=== PATIENT | female | born 1995 | race Caucasian/White ===

== ENCOUNTER 2019-09-18 12:24 | Observation (INO) | payer SELFPAY ==
[2019-09-18 12:30] VITALS: BP 133/72; PULSE 73; RESP 25; TEMP 36.4; O2SAT 100; BMI 16.2
--- NOTE | 2019-09-18 12:35 | ECG_ITS ---
Measurements Intervals [place] Rate: 67 P: -5 NH: 140 QRS: 89 QRSD: 95 T: 77 QT: 449 QTc: 476 SINUS RHYTHM No previous ECG available for comparison Electronically Signed On 09-18-2019 18:45:21 CDT by Triston Blackwell M.D. [email or web address]
--- NOTE | 2019-09-18 12:37 | US_ITS ---
WS: [id number] Complete ABDOMINAL ULTRASOUND HISTORY: Abdominal Pain COMPARISON: None available. Liver: 12.3 cm in length. Liver is normal size and echogenicity with no mass or intrahepatic dilatati on. Gallbladder: Normally distended with no gallstones, wall thickening or pericholecystic fluid. Gallbladder wall thickness: 0.2 cm. Pancreas: Normal size and echogenicity. CBD: 0.2 cm. Right kidney: 10.9 cm x 5.3 cm x 4.8 cm. No mass, cortical thickening or hydronephrosis. Left kidney: 9.5 cm x 5.3 cm x 4.5 cm. No mass, cortical thickening or hydronephrosis. Spleen: Normal size and echogenicity. Abdominal aorta and IVC are within normal limits. No ascites. US/US abdomen complete* [id number] IMPRESSION: Normal complete abdomen ultrasound.
--- NOTE | 2019-09-18 12:42 | ED_ITS ---
HPI - Nausea/Vomiting/Diarrhea General: Chief complaint: Nausea/Vomiting/Diarrhea Stated complaint: PAIN IN BOTH ARMS, LEGS, VOMITING Time Seen by Provider: 09/18/19 12:31 History of Present Illness: HPI Narrative: Kailee is a very nice 24-year-old female who comes in the report of severe vomiting. He states it started this morning and she has had numerous episodes. She denies abdominal pain, fever, diarrhea, constipation, urinary symptoms, vaginal discharge or bleeding. She denies any chest pain or shortness of breath. She is unaware of anything that makes her symptoms better or worse. Patient states she is had nothing similar to this in the past. She has had no known ill contacts. Associated nausea: Yes Associated symtoms: Reports nausea; Denies altered mental status, change in vision, chest pain, diaphoresis, dizziness, dysuria, fatigue, headache(s), malaise, palpitations or syncope Review of Systems General: Reports: other (negative unless marked) Const: Denies: fever, chills, body aches, fatigue, malaise or diaphoresis Eyes: Denies: change in vision or blurry vision ENMT: Denies: throat pain, painful swallowing, hoarseness, ear pain, ear discharge, Change in hearing or nasal discharge Card: Denies: chest pain, palpitations, irregular heart rhythm, syncope, pre- syncope, shortness of breath on exertion or shortness of breath when lying down Resp: Denies: shortness of breath, productive cough, non-productive cough, wheezing, coughing up blood or chest congestion GI: Reports: nausea and vomiting; Denies: abdominal pain, vomiting blood, coffee grounds in vomit, diarrhea, constipation, cramping, blood in stool or black tarry stool : Denies: flank pain, painful urination, urinary frequency, urinary urgency, decreased urine ouput, urinary incontinence or blood in urine Musc: Denies: neck pain, back pain, extremity pain, extremity swelling, joint pain, joint swelling, joint warmth or joint stiffness Skin/Breast: Denies: rash, skin tenderness or yellow skin Neuro: Denies: headache, numbness in extremities, weakness in extremities, changes in sensation, lack of coordination, difficulty walking, dizziness, vertigo or confusion Endo: Denies: excessive thirst, tired all the time, cold intolerance, excessive sweating, flushing or hot flashes Hayes/Lymph: Denies: easy bruising, easy bleeding, petechiae or enlarged lymph nodes All/Imm: Denies: hives, throat swelling, tongue swelling, facial swelling or acute wheezing PFSH ED PFSH: Medical History (Updated 09/18/19 @ 16:09 by Gilmer Harden MD) No pertinent past medical history Surgical History (Updated 09/18/19 @ 12:44 by Cynthia Hanley) No history of previous surgery Family History (Updated 09/18/19 @ 16:08 by Gilmer Harden MD) Other CAD (coronary artery disease) Social History (Updated 09/18/19 @ 12:44 by Cynthia Hanley) Substance/Drug Use: current Substance/Drug use frequency: daily Substance/Drug use type: Marijuana Physical Exam Const: COMMON NORMALS: no apparent distress, oriented x3, no limitations, healthy appearing and well nourished EXAM LIMITATIONS: no altered mental status GENERAL APPEARANCE: cooperative, well kempt and well developed ORIENTATION/CONSCIOUSNESS: Yes awake HENMT: COMMON NORMALS: normocephalic, head/scalp atraumatic, hearing grossly normal bilaterally, external ears normal, EAC's normal, external nose normal and moist oral mucous membranes HEAD & SCALP: normal to inspection, normocephalic and atraumatic FACE & SINUS: normal facial exam and face symmetric NOSE: external nose normal and nares normal EXTERNAL EAR: Yes external ears normal EXTERNAL AUDITORY CANAL: EAC's normal MOUTH: oral and palatal mucosa normal and tongue normal Eye: COMMON NORMALS: PERRL, EOMs intact bilaterally, conjunctivae normal and no scleral icterus GENERAL EYE: normal appearance of both eyes and normal light reflex CONJUNCTIVA: Yes conjunctivae normal SCLERA: sclerae normal CORNEA: Yes corneas normal PUPIL: Yes PERRL DIRECT OPHTHALMOSCOPY: Yes normal light reflex Neck/C-Spine: COMMON NORMALS: full ROM, no lymphadenopathy, supple, no meningeal signs and no JVD GENERAL: Yes normal visual inspection and Yes trachea midline CERVICAL SPINE: Yes cervical ROM normal Chest: COMMONS NORMALS: inspection of chest normal and palpation of chest normal Resp: COMMON NORMALS: normal respiratory effort, no retractions, no use of accessory muscles and clear to auscultation bilaterally EFFORT & INSPECTION: Yes able to speak in complete sentences AUSCULTATION: clear to auscultation bilaterally Cardio: COMMON NORMALS: no JVD, regular rate, regular rhythm, S1 normal heart sound, S2 normal heart sound, no gallops, no clicks, no murmurs and no rub JUGULAR VENOUS DISTENTION: no JVD RATE: regular rate RHYTHM: regular rhythm HEART SOUNDS: S1 normal and S2 normal GI: COMMON NORMALS: soft to palpation, non-tender, no hepatosplenomegaly and no masses INSPECTION: Yes normal to inspection PALPATION: Yes soft and Yes no hepatosplenomegaly : COMMON NORMALS: Yes no CVA tenderness BLADDER/KIDNEY EXAM: Yes no CVA tenderness Back/Pelvis: COMMON NORMALS: no CVA tenderness, thoracic and lumbar spine normal to inspection, no thoracic nor lumbar tenderness and thoraco-lumbar ROM normal Extremity: COMMON NORMALS: normal to inspection, full ROM, normal capillary refill, no joint enlargement, no clubbing, cyanosis or edema and no calf tenderness Neuro: COMMON NORMALS: oriented x3, CN's II-XII intact bilaterally, moves all extremities, no focal motor deficits and no sensory deficits noted MENINGEAL SIGNS: Yes no meningeal signs Psych: COMMON NORMALS: mental status grossly normal, thought process normal, cooperative, affect normal, speech normal and activity/motor behavior normal APPEARANCE: Yes well kempt SPEECH: Yes normal speech THOUGHT PROCESS: normal thought process Skin: COMMON NORMALS: no rashes or lesions noted, skin turgor normal, no jaundice, no petechiae and no mottling GENERAL SKIN EXAM: no rashes or lesions noted and turgor normal Course Vital Signs: Vital signs: Vital Signs Temperature 98.8 F 09/18/19 20:00 Pulse Rate 71 09/18/19 20:00 Respiratory Rate 16 09/18/19 20:00 Blood Pressure 147/79 09/18/19 20:00 Pulse Oximetry 98 09/18/19 20:00 MDM - Nausea/Vomiting/Diarrhea MDM Narrative: Medical decision making narrative: The patient is feeling only slightly better. She has no urinary symptoms. I think this is still likely cannabis hyperemesis syndrome with a additional UTI. Of course I cannot rule out sepsis due to the significance of her acidosis. I will go ahead and admit her. The case was reviewed with Dr. Harden and he is agreeable to admission. Lab Data: Attestation: I reviewed the patient's lab results. Labs: Lab Results 09/18/19 09/18/19 09/18/19 Range/Units 13:00 13:00 13:00 WBC 14.7 H (4.0-10.0) 10^3/ uL RBC 4.65 (4.1-5.3) 10^6/u L Hgb 13.8 (11.5-15.3) g/dL Hct 42.4 (37.0-47.0) % MCV 91.2 (81-99) fL MCH 29.7 (28.0-34.0) pg MCHC 32.5 (30.0-36.0) g/dL RDW 12.1 (12.1-15.1) % Plt Count 320 (130-400) 10^3/c mm MPV 10.5 H (7.4-10.4) fL Neut % (Auto) 87.4 % Lymph % (Auto) 10.3 % [place] % (Auto) 1.6 % Eos % (Auto) 0.1 % Baso % (Auto) 0.3 % Neut # (Auto) 12.9 H (1.8-7.7) 10^3/u L Lymph # (Auto) 1.5 (0.8-4.8) 10^3/u L [place] # (Auto) 0.2 (0.2-0.9) 10^3/u L Eos # (Auto) 0.0 (0.0-0.8) 10^3/u L Baso # (Auto) 0.1 (0.0-0.1) 10^3/u L Nucleated RBC % (a uto) 0 % Nucleated RBCs # 0.0 /100WBC Specimen Type Sample Site ABG pH (7.35-7.45) ABG pCO2 (35-45) mmHg ABG pO2 (80.0-100.0) mmH g ABG HCO3 (22-26) mmol/L ABG Base Excess (-2.0-2.0) mmol/ L Waqas Test Hematocrit (37-47) % FiO2 % Drop Forger Helper ID Sodium 136 (136-145) mmol/L Potassium 3.2 L (3.5-5.1) mmol/L Chloride 101 (98-107) mmol/L Carbon Dioxide 14 L (22-29) mmol/L Anion Gap 24.2 H (5-19) BUN 9 (6-20) mg/dL Creatinine 0.9 (0.5-0.9) mg/dL GFR Calculation 76.3 L (90-130) mL/min Glucose 201 H (65-115) mg/dL Estimat Average Gl ucose Hemoglobin A1c (4.0-6.0) % Calculated Osmolal ity 284 L (285-295) mOsm/k g Lactic Acid (0.5-2.2) mmol/L Calcium 8.8 (8.5-10.5) mg/dL Magnesium 1.9 (1.7-2.3) mg/dL Total Bilirubin 0.4 (0.15-1.2) mg/dL AST 21 (0-32) U/L ALT 11 (0-33) U/L Alkaline Phosphata se 48 (35-105) IU/L C-Reactive Protein (0.0-4.9) mg/L Total Protein 7.3 (6.6-8.7) g/dL Albumin 4.6 (3.5-5.2) g/dL Globulin 2.7 (1.3-4.6) g/dL Lipase 20 (13-60) U/L Procalcitonin (0-0.5) ng/mL HCG, Qual Negative (Negative) Urine Color (Yellow) Urine Appearance (CLEAR) Urine pH (5-7) Ur Specific Gravit y (1.005-1.030) Urine Protein (Negative) Urine Glucose (UA) (Normal) Urine Ketones (Negative) Urine Blood (Negative) Urine Nitrate (Negative) Urine Bilirubin (NEGATIVE) Prot Sulfosalicyli c Acd (Negative) Urine Urobilinogen (Negative) mg/dL Ur Leukocyte Jeannette ase (Negative) Urine RBC (0-2) /hpf Urine WBC (0-5) /hpf Ur Squamous Epith Cells (0-5) Amorphous Sediment Urine Bacteria (NONE) Salicylates (3-10) mg/dL Urine Opiates Scre en (Negative) ng/mL Acetaminophen (10-30) ug/mL Ur Barbiturates Sc reen (Negative) ng/mL Phenytoin (10-20) ug/mL Valproic Acid (50-100) mcg/mL Carbamazepine (4.0-12.0) ug/mL Ur Phencyclidine S crn (Negative) ng/mL Ur Amphetamines Sc reen (Negative) ng/mL U Benzodiazepines Scrn (Negative) ng/mL [place] (0.6-1.2) mmol/L Urine Cocaine Scre en (Negative) ng/mL U Marijuana (THC) Screen (Negative) ng/mL Ethyl Alcohol < 10 (0-10) mg/dL Serum Ketones (Negative) 09/18/19 09/18/19 09/18/19 Range/Units 13:00 13:00 13:00 WBC (4.0-10.0) 10^3/ uL RBC (4.1-5.3) 10^6/u L Hgb (11.5-15.3) g/dL Hct (37.0-47.0) % MCV (81-99) fL MCH (28.0-34.0) pg MCHC (30.0-36.0) g/dL RDW (12.1-15.1) % Plt Count (130-400) 10^3/c mm MPV (7.4-10.4) fL Neut % (Auto) % Lymph % (Auto) % [place] % (Auto) % Eos % (Auto) % Baso % (Auto) % Neut # (Auto) (1.8-7.7) 10^3/u L Lymph # (Auto) (0.8-4.8) 10^3/u L [place] # (Auto) (0.2-0.9) 10^3/u L Eos # (Auto) (0.0-0.8) 10^3/u L Baso # (Auto) (0.0-0.1) 10^3/u L Nucleated RBC % (a uto) % Nucleated RBCs # /100WBC Specimen Type Sample Site ABG pH (7.35-7.45) ABG pCO2 (35-45) mmHg ABG pO2 (80.0-100.0) mmH g ABG HCO3 (22-26) mmol/L ABG Base Excess (-2.0-2.0) mmol/ L Waqas Test Hematocrit (37-47) % FiO2 % Drop Forger Helper ID Sodium (136-145) mmol/L Potassium (3.5-5.1) mmol/L Chloride (98-107) mmol/L Carbon Dioxide (22-29) mmol/L Anion Gap (5-19) BUN (6-20) mg/dL Creatinine (0.5-0.9) mg/dL GFR Calculation (90-130) mL/min Glucose (65-115) mg/dL Estimat Average Gl ucose Hemoglobin A1c (4.0-6.0) % Calculated Osmolal ity (285-295) mOsm/k g Lactic Acid (0.5-2.2) mmol/L Calcium (8.5-10.5) mg/dL Magnesium (1.7-2.3) mg/dL Total Bilirubin (0.15-1.2) mg/dL AST (0-32) U/L ALT (0-33) U/L Alkaline Phosphata se (35-105) IU/L C-Reactive Protein (0.0-4.9) mg/L Total Protein (6.6-8.7) g/dL Albumin (3.5-5.2) g/dL Globulin (1.3-4.6) g/dL Lipase (13-60) U/L Procalcitonin (0-0.5) ng/mL HCG, Qual (Negative) Urine Color (Yellow) Urine Appearance (CLEAR) Urine pH (5-7) Ur Specific Gravit y (1.005-1.030) Urine Protein (Negative) Urine Glucose (UA) (Normal) Urine Ketones (Negative) Urine Blood (Negative) Urine Nitrate (Negative) Urine Bilirubin (NEGATIVE) Prot Sulfosalicyli c Acd (Negative) Urine Urobilinogen (Negative) mg/dL Ur Leukocyte Jeannette ase (Negative) Urine RBC (0-2) /hpf Urine WBC (0-5) /hpf Ur Squamous Epith Cells (0-5) Amorphous Sediment Urine Bacteria (NONE) Salicylates < 0.3 L (3-10) mg/dL Urine Opiates Scre en (Negative) ng/mL Acetaminophen < 5.0 L (10-30) ug/mL Ur Barbiturates Sc reen (Negative) ng/mL Phenytoin 0.8 L (10-20) ug/mL Valproic Acid 2.8 L (50-100) mcg/mL Carbamazepine 2.0 L (4.0-12.0) ug/mL Ur Phencyclidine S crn (Negative) ng/mL Ur Amphetamines Sc reen (Negative) ng/mL U Benzodiazepines Scrn (Negative) ng/mL [place] 0.1 L (0.6-1.2) mmol/L Urine Cocaine Scre en (Negative) ng/mL U Marijuana (THC) Screen (Negative) ng/mL Ethyl Alcohol (0-10) mg/dL Serum Ketones Negative (Negative) 09/18/19 09/18/19 09/18/19 Range/Units 13:00 13:00 14:23 WBC (4.0-10.0) 10^3/ uL RBC (4.1-5.3) 10^6/u L Hgb (11.5-15.3) g/dL Hct (37.0-47.0) % MCV (81-99) fL MCH (28.0-34.0) pg MCHC (30.0-36.0) g/dL RDW (12.1-15.1) % Plt Count (130-400) 10^3/c mm MPV (7.4-10.4) fL Neut % (Auto) % Lymph % (Auto) % [place] % (Auto) % Eos % (Auto) % Baso % (Auto) % Neut # (Auto) (1.8-7.7) 10^3/u L Lymph # (Auto) (0.8-4.8) 10^3/u L [place] # (Auto) (0.2-0.9) 10^3/u L Eos # (Auto) (0.0-0.8) 10^3/u L Baso # (Auto) (0.0-0.1) 10^3/u L Nucleated RBC % (a uto) % Nucleated RBCs # /100WBC Specimen Type Sample Site ABG pH (7.35-7.45) ABG pCO2 (35-45) mmHg ABG pO2 (80.0-100.0) mmH g ABG HCO3 (22-26) mmol/L ABG Base Excess (-2.0-2.0) mmol/ L [place] Test Hematocrit (37-47) % FiO2 % Drop Forger Helper ID Sodium (136-145) mmol/L Potassium (3.5-5.1) mmol/L Chloride (98-107) mmol/L Carbon Dioxide (22-29) mmol/L Anion Gap (5-19) BUN (6-20) mg/dL Creatinine (0.5-0.9) mg/dL GFR Calculation (90-130) mL/min Glucose (65-115) mg/dL Estimat Average Gl ucose 114 Hemoglobin A1c 5.6 (4.0-6.0) % Calculated Osmolal ity (285-295) mOsm/k g Lactic Acid (0.5-2.2) mmol/L Calcium (8.5-10.5) mg/dL Magnesium (1.7-2.3) mg/dL Total Bilirubin (0.15-1.2) mg/dL AST (0-32) U/L ALT (0-33) U/L Alkaline Phosphata se (35-105) IU/L C-Reactive Protein 1.0 (0.0-4.9) mg/L Total Protein (6.6-8.7) g/dL Albumin (3.5-5.2) g/dL Globulin (1.3-4.6) g/dL Lipase (13-60) U/L Procalcitonin 0.02 (0-0.5) ng/mL HCG, Qual (Negative) Urine Color Yellow (Yellow) Urine Appearance Hazy A (CLEAR) Urine pH 9 H (5-7) Ur Specific Gravit y 1.010 (1.005-1.030) Urine Protein Neg (Negative) Urine Glucose (UA) Norm (Normal) Urine Ketones 3+ H (Negative) Urine Blood Neg (Negative) Urine Nitrate Positive H (Negative) Urine Bilirubin Neg (NEGATIVE) Prot Sulfosalicyli c Acd Negative (Negative) Urine Urobilinogen 1 H (Negative) mg/dL Ur Leukocyte Jeannette ase 2+ H (Negative) Urine RBC None (0-2) /hpf Urine WBC 25-40 H (0-5) /hpf Ur Squamous Epith Cells 0-4 H (0-5) Amorphous Sediment 1+ Urine Bacteria 2+ H (NONE) Salicylates (3-10) mg/dL Urine Opiates Scre en (Negative) ng/mL Acetaminophen (10-30) ug/mL Ur Barbiturates Sc reen (Negative) ng/mL Phenytoin (10-20) ug/mL Valproic Acid (50-100) mcg/mL Carbamazepine (4.0-12.0) ug/mL Ur Phencyclidine S crn (Negative) ng/mL Ur Amphetamines Sc reen (Negative) ng/mL U Benzodiazepines Scrn (Negative) ng/mL [place] (0.6-1.2) mmol/L Urine Cocaine Scre en (Negative) ng/mL U Marijuana (THC) Screen (Negative) ng/mL Ethyl Alcohol (0-10) mg/dL Serum Ketones (Negative) 09/18/19 09/18/19 09/18/19 Range/Units 14:23 14:50 15:26 WBC (4.0-10.0) 10^3/ uL RBC (4.1-5.3) 10^6/u L Hgb (11.5-15.3) g/dL Hct (37.0-47.0) % MCV (81-99) fL MCH (28.0-34.0) pg MCHC (30.0-36.0) g/dL RDW (12.1-15.1) % Plt Count (130-400) 10^3/c mm MPV (7.4-10.4) fL Neut % (Auto) % Lymph % (Auto) % [place] % (Auto) % Eos % (Auto) % Baso % (Auto) % Neut # (Auto) (1.8-7.7) 10^3/u L Lymph # (Auto) (0.8-4.8) 10^3/u L [place] # (Auto) (0.2-0.9) 10^3/u L Eos # (Auto) (0.0-0.8) 10^3/u L Baso # (Auto) (0.0-0.1) 10^3/u L Nucleated RBC % (a uto) % Nucleated RBCs # /100WBC Specimen Type Arterial Sample Site Brachial, right ABG pH 7.48 H (7.35-7.45) ABG pCO2 24.9 L (35-45) mmHg ABG pO2 97.8 (80.0-100.0) mmH g ABG HCO3 18.7 L (22-26) mmol/L ABG Base Excess -3.2 L (-2.0-2.0) mmol/ L Waqas Test Pos Hematocrit 39.1 (37-47) % FiO2 21.0 % Drop Forger Helper ID bd Sodium (136-145) mmol/L Potassium (3.5-5.1) mmol/L Chloride (98-107) mmol/L Carbon Dioxide (22-29) mmol/L Anion Gap (5-19) BUN (6-20) mg/dL Creatinine (0.5-0.9) mg/dL GFR Calculation (90-130) mL/min Glucose (65-115) mg/dL Estimat Average Gl ucose Hemoglobin A1c (4.0-6.0) % Calculated Osmolal ity (285-295) mOsm/k g Lactic Acid 3.3 H (0.5-2.2) mmol/L Calcium (8.5-10.5) mg/dL Magnesium (1.7-2.3) mg/dL Total Bilirubin (0.15-1.2) mg/dL AST (0-32) U/L ALT (0-33) U/L Alkaline Phosphata se (35-105) IU/L C-Reactive Protein (0.0-4.9) mg/L Total Protein (6.6-8.7) g/dL Albumin (3.5-5.2) g/dL Globulin (1.3-4.6) g/dL Lipase (13-60) U/L Procalcitonin (0-0.5) ng/mL HCG, Qual (Negative) Urine Color (Yellow) Urine Appearance (CLEAR) Urine pH (5-7) Ur Specific Gravit y (1.005-1.030) Urine Protein (Negative) Urine Glucose (UA) (Normal) Urine Ketones (Negative) Urine Blood (Negative) Urine Nitrate (Negative) Urine Bilirubin (NEGATIVE) Prot Sulfosalicyli c Acd (Negative) Urine Urobilinogen (Negative) mg/dL Ur Leukocyte Jeannette ase (Negative) Urine RBC (0-2) /hpf Urine WBC (0-5) /hpf Ur Squamous Epith Cells (0-5) Amorphous Sediment Urine Bacteria (NONE) Salicylates (3-10) mg/dL Urine Opiates Scre en Negative (Negative) ng/mL Acetaminophen (10-30) ug/mL Ur Barbiturates Sc reen Positive H (Negative) ng/mL Phenytoin (10-20) ug/mL Valproic Acid (50-100) mcg/mL Carbamazepine (4.0-12.0) ug/mL Ur Phencyclidine S crn Negative (Negative) ng/mL Ur Amphetamines Sc reen Negative (Negative) ng/mL U Benzodiazepines Scrn Positive H (Negative) ng/mL [place] (0.6-1.2) mmol/L Urine Cocaine Scre en Negative (Negative) ng/mL U Marijuana (THC) Screen Positive H (Negative) ng/mL Ethyl Alcohol (0-10) mg/dL Serum Ketones (Negative) Imaging Data^: US: Radiologist's impression: [address] [address] Ultrasound Report Signed Patient: Kailee Vernon Unit #: [id number] : [id number] Age/Sex: 24 / F ADM Date: 09/18/19 Loc: ER Room/Bed: Attending Dr: Ordering Provider/Ordering MD: Cynthia Hanley DO Date of Service: 09/18/19 Procedure(s): US abdomen complete* [id number] Accession Number(s): [id number] Report Number: [id number] WS: [id number] Complete ABDOMINAL ULTRASOUND HISTORY: Abdominal Pain COMPARISON: None available. Liver: 12.3 cm in length. Liver is normal size and echogenicity with no mass or intrahepatic dilatation. Gallbladder: Normally distended with no gallstones, wall thickening or pericholecystic fluid. Gallbladder wall thickness: 0.2 cm. Pancreas: Normal size and echogenicity. CBD: 0.2 cm. Right kidney: 10.9 cm x 5.3 cm x 4.8 cm. No mass, cortical thickening or hydronephrosis. Left kidney: 9.5 cm x 5.3 cm x 4.5 cm. No mass, cortical thickening or hydronephrosis. Spleen: Normal size and echogenicity. Abdominal aorta and IVC are within normal limits. No ascites. US/US abdomen complete* [id number] IMPRESSION: Normal complete abdomen ultrasound. Dictated By: Sandy Cohen DO Signed By: Sandy Cohen DO Signed Date/Time: 09/18/19 1346 DD/ 1343 EKG Data^: EKG 1: Attestation: I personally reviewed and interpreted this EKG as follows: EKG interpretation date: 09/18/19 EKG interpretation time: 13:45 Interpretation: Normal sinus rhythm at 67 beats a minute, no acute ST or T wave changes. Baseline wandering artifact. Discharge Plan Discharge Patient Disposition: Placed in Observation Admit Provider: Gilmer Harden Clinical Impression: Sepsis Qualifiers: Sepsis type: sepsis due to unspecified organism Sepsis acute organ dysfunction status: without acute organ dysfunction Qualified Code(s): A41.9 - Sepsis, unspecified organism UTI (urinary tract infection) Qualifiers: Urinary tract infection type: site unspecified Hematuria presence: without hematuria Qualified Code(s): N39.0 - Urinary tract infection, site not specified Condition: Stable Referrals: Santo Valenzuela HEALTH CARE TECHNICIAN [Primary Care Provider] - Discharge Date/Time: 09/18/19 18:55 Coding Level of Care Code ED Seed Cleaning Machine Operator for Chg Fwd Exam Comprehensive
[2019-09-18 13:07] LABS: Basophils # 0.1 10^3/uL (0.0-0.1); Basophils % 0.3 %; Eosinophils % 0.1 %; Hematocrit 42.4 % (37.0-47.0); Hemoglobin 13.8 g/dL (11.5-15.3); Lymphocytes # 1.5 10^3/uL (0.8-4.8); Lymphocytes % 10.3 %; Mean Corpuscular HGB Conc 32.5 g/dL (30.0-36.0); Mean Corpuscular Hemoglobin 29.7 pg (28.0-34.0); Mean Corpuscular Volume 91.2 fL (81-99); Mean Platelet Volume 10.5 fL (7.4-10.4); Monocytes # 0.2 10^3/uL (0.2-0.9); Monocytes % 1.6 %; Neutrophils # 12.9 10^3/uL (1.8-7.7); Neutrophils % 87.4 %; Nucleated Red Blood Cells % 0 %; Platelet Count 320 10^3/cmm (130-400); Red Blood Count 4.65 10^6/uL (4.1-5.3); Red Cell Distribution Width 12.1 % (12.1-15.1); White Blood Count 14.7 10^3/uL (4.0-10.0)
[2019-09-18] MEDS: ondansetron 2 mg/ML SDV 2 mL 4 MG IVP ×2 (13:07→19:23)
[2019-09-18 13:14] LABS: HCG, Serum Qual Negative (Negative)
[2019-09-18 13:20] LABS: Alanine Aminotransferase 11 U/L (0-33); Albumin Level 4.6 g/dL (3.5-5.2); Alkaline Phosphatase 48 IU/L (35-105); Anion Gap 24.2 (5-19); Aspartate Amino Transferase 21 U/L (0-32); Blood Urea Nitrogen 9 mg/dL (6-20); Calcium 8.8 mg/dL (8.5-10.5); Carbon Dioxide 14 mmol/L (22-29); Chloride 101 mmol/L (98-107); Globulin 2.7 g/dL (1.3-4.6); Glomerular Filtration Rate 76.3 mL/min (90-130); Glucose 201 mg/dL (65-115); Lipase 20 U/L (13-60); Magnesium 1.9 mg/dL (1.7-2.3); Osmolality Calculated 284 mOsm/kg (285-295); Potassium 3.2 mmol/L (3.5-5.1); Sodium 136 mmol/L (136-145); Total Bilirubin 0.4 mg/dL (0.15-1.2); Total Protein 7.3 g/dL (6.6-8.7)
[2019-09-18] MEDS: lactated ringers 1,000 ML 999 ML IV (13:22)
[2019-09-18] MEDS: lactated ringers 1,000 ML 150 ML IV (13:26)
[2019-09-18] MEDS: diphenhydrAMINE 50 mg/mL SDV 1mL 25 MG IVP (13:26)
[2019-09-18 13:37] VITALS: BP 136/75; PULSE 73; RESP 18; O2SAT 98
[2019-09-18 13:40] LABS: Alcohol Level < 10 mg/dL (0-10)
[2019-09-18] MEDS: metoclopramide 5 mg/mL SDV 2 mL 10 MG IV (14:41)
[2019-09-18 14:45] LABS: Amphetamines Screen Urine Negative (Negative); Barbiturates Screen Urine Positive (Negative); Benzodiazepines Screen Urine Positive (Negative); Cocaine Screen Urine Negative (Negative); Opiate Screen Urine Negative (Negative); PCP Screen Urine Negative (Negative); THC Screen Urine Positive (Negative)
[2019-09-18 14:46] LABS: Glucose Urine UA Norm (Normal); Ketones Urine 3+ (Negative); Protein Urine Neg (Negative); Urine Appearance Hazy (CLEAR); Urine Color Yellow (Yellow); pH Urine 9 (5-7)
[2019-09-18 14:47] LABS: Add Urine Culture? Yes; Amorphous Sediment Urine 1+; Bacteria Urine 2+; Bilirubin Urine Neg (NEGATIVE); Blood Urine Neg (Negative); Leukocyte Esterase Urine 2+ (Negative); Nitrate Urine Positive (Negative); Squamous Epithelial Cell Urine 0-4 (0-5); Sulfosalicylic Acid Urine Negative (Negative); Urobilinogen Urine 1 mg/dL (Negative); WBC Urine 25-40 /hpf (0-5)
--- NOTE | 2019-09-18 14:50 | PC.NURSE ---
pt asked to give urine sample; pt rq nausea meds
[2019-09-18 14:59] LABS: ABG PCO2 24.9 mmHg (35-45); ABG PH Result 7.48 (7.35-7.45); Arterial Blood Gas Hematocrit 39.1 % (37-47); Base Excess ABG -3.2 mmol/L (-2.0-2.0); Blood Gas Allen Test Pos; Blood Gas Sample Site Brachial, right; Blood Gas Sample Type Arterial; HCO3 ABG 18.7 mmol/L (22-26); PO2 ABG 97.8 mmHg (80.0-100.0)
[2019-09-18 15:18] LABS: Ketone (Acetest) Serum Negative (Negative)
[2019-09-18 15:28] LABS: Lithium 0.1 mmol/L (0.6-1.2); Phenytoin Dilantin 0.8 ug/mL (10-20); Valproic Acid Level 2.8 mcg/mL (50-100)
[2019-09-18 15:46] LABS: Acetaminophen < 5.0 ug/mL (10-30); Salicylate < 0.3 mg/dL (3-10)
[2019-09-18] MEDS: cefTRIAXone 1,000 MG in sodium chloride 0.9% (plus) 50 ML 100 MG IV (15:50)
[2019-09-18] MEDS: sodium chloride 0.9% 1,000 ML 100 ML IV ×2 (15:55→21:51)
[2019-09-18 15:58] LABS: Lactic Sepsis W/Reflex 3.3 mmol/L (0.5-2.2)
--- NOTE | 2019-09-18 16:06 | PM.HP ---
Providers/Chief Complaint Primary Care Provider: Santo Valenzuela APN Chief Complaint: PAIN IN BOTH ARMS, LEGS, VOMITING History of Present Illness Kailee Vernon is a 24 year old female with no significant past medical history presents to [facility] due to complaints of nausea, vomiting, malaise. Patient states that she lives in [place], has 3 kids, no recent travel, no sick sick contacts, no exposure to COVID-19. Patient states that she woke up this morning, with nausea, vomiting, malaise, no fevers, has chills, no lightheadedness, no dizziness, no diarrhea, no chest pain, no shortness of breath. Patient denies dysuria, hematuria, denies being , does report vaginal discharge, no abdominal pain, denies back pain, denies flank pain. Review of Systems Const: Reports: chills, fatigue and malaise; Denies: fever Eyes: Denies: change in vision or blurry vision ENMT: Denies: nasal congestion Resp: Denies: shortness of breath, productive cough, non-productive cough or wheezing GI: Denies: abdominal pain, nausea, vomiting, vomiting blood, diarrhea, constipation, blood in stool or black tarry stool : Denies: flank pain, painful urination or urinary frequency Musc: Denies: neck pain or back pain Skin/Breast: Denies: rash Neuro: Denies: headache, dizziness or vertigo Psych: Denies: anxiety or depression Endo: Denies: excessive urination or excessive thirst Medications/Allergies Home Medications Medication Instructions Recorded Confirmed Last Taken Type PNV cmb#95-ferrous fumarate-FA 1 tab PO DAILY 09/18/19 09/18/19 09/17/19 History [] escitalopram oxalate 20 mg PO DAILY 09/18/19 09/18/19 09/17/19 History ibuprofen 800 mg PO TID PRN 09/18/19 09/18/19 09/17/19 History norethindrone-e.estradiol-iron [Lo 1 tab PO DAILY 09/18/19 09/18/19 09/17/19 History Loestrin Fe] ondansetron 4 mg PO PRN 09/18/19 09/18/19 09/18/19 History 3 tabs today Allergies Allergy/AdvReac Type Severity Reaction Status Date / Time No Known Allergies Allergy Verified 09/18/19 12:30 PFSH Acute PFSH: Medical History (Updated 09/18/19 @ 16:09 by Gilmer Harden MD) No pertinent past medical history Surgical History (Updated 09/18/19 @ 12:44 by Cynthia Hanley) No history of previous surgery Family History (Updated 09/18/19 @ 16:08 by Gilmer Harden MD) Other CAD (coronary artery disease) Social History (Updated 09/18/19 @ 12:44 by Cynthia Hanley) Substance/Drug Use: current Substance/Drug use frequency: daily Substance/Drug use type: Marijuana Vitals/I&O/Wt Last Vital Signs Temp 97.6 F 09/18/19 12:30 Pulse 73 09/18/19 13:37 Resp 18 09/18/19 13:37 BP 136/75 09/18/19 13:37 Pulse Ox 98 09/18/19 13:37 Weight last 48 hrs Weight 49.895 kg Physical Exam Const: COMMON NORMALS: no apparent distress and oriented x3 GENERAL APPEARANCE: cooperative and ill appearing HENMT: COMMON NORMALS: normocephalic HEAD & SCALP: normocephalic Eye: COMMON NORMALS: PERRL, EOMs intact bilaterally and no papilledema GENERAL EYE: normal appearance of both eyes PUPIL: Yes PERRL DIRECT OPHTHALMOSCOPY: Yes no papilledema Neck/C-Spine: COMMON NORMALS: full ROM, no lymphadenopathy, no JVD and thyroid normal THYROID: thyroid normal Lymph: LYMPHATIC: no lymphadenopathy noted Resp: COMMON NORMALS: normal respiratory effort, no retractions, no use of accessory muscles and clear to auscultation bilaterally AUSCULTATION: clear to auscultation bilaterally Cardio: COMMON NORMALS: no JVD, regular rate, regular rhythm, S1 normal heart sound, S2 normal heart sound, no gallops, no clicks and no murmurs RATE: regular rate RHYTHM: regular rhythm HEART SOUNDS: S1 normal and S2 normal GI: COMMON NORMALS: normal to inspection, nondistended, normoactive bowel sounds, soft to palpation, non-tender and no hepatosplenomegaly PALPATION: Yes soft and Yes no hepatosplenomegaly Back/Pelvis: GENERAL BACK: Yes CVA tenderness CVA tenderness: right Extremity: COMMON NORMALS: normal to inspection, full ROM and no pedal edema Neuro: COMMON NORMALS: oriented x3, CN's II-XII intact bilaterally, moves all extremities and no focal motor deficits Psych: COMMON NORMALS: mental status grossly normal, thought process normal and cooperative THOUGHT PROCESS: normal thought process Data : 09/18/19 13:00 09/18/19 13:00 Micro: Microbiology 09/18/19 13:50 Blood Culture - Preliminary Blood SPECIMEN COLLECTED 09/18/19 15:26 Blood Culture - Preliminary Blood SPECIMEN COLLECTED A&P Assessment and plan (1) Pyelonephritis: -Pyelonephritis, with sepsis, UTI -Patient has right flank pain, white blood cell count 14.7, lactic acid 3.3, creatinine 0.9, bicarb 14 -Renal ultrasound negative for obstructive uropathy -Patient is ill-appearing -In the ER, blood pressure 136/75, heart rate 100, respiratory 25, temperature 97.6 Plan: -Admit to general medical floors -IV hydration -Rocephin for antibiotic coverage -Follow urine cultures, blood cultures -CT scan abdomen -Monitor vitals -Zofran for nausea, Reglan -Morphine for pain control -Full code -Lovenox for DVT prophylaxis Status: Acute (2) UTI (urinary tract infection): Status: Acute Qualifiers: Hematuria presence: without hematuria Urinary tract infection type: site unspecified Qualified Code(s): N39.0 - Urinary tract infection, site not specified (3) Sepsis: Status: Acute Qualifiers: Sepsis acute organ dysfunction status: without acute organ dysfunction Sepsis type: sepsis due to unspecified organism Qualified Code(s): A41.9 - Sepsis, unspecified organism Attestations Medical Necessity Statement*: Patient requires hospitalization, outpatient with observation for pyelonephritis sepsis Coding Level of Care Code Acute Manager Credit Collections for [facility] Fwd Diagnoses Pyelonephritis N12 UTI (urinary tract infection) N39.0 Hematuria presence: without hematuria Urinary tract infection type: site unspecified Sepsis A41.9 Sepsis acute organ dysfunction status: without acute organ dysfunction Sepsis type: sepsis due to unspecified organism
[2019-09-18 17:20] LABS: Reflex Lactate Order REFLEX LACTIC ORDERD
[2019-09-18 18:53] VITALS: BP 130/74; PULSE 82; RESP 18; O2SAT 96
--- NOTE | 2019-09-18 19:12 | CTR_ITS ---
PROCEDURE INFORMATION: Exam: CT Abdomen And Pelvis Without Contrast Exam date and time: 09/18/2019 5:32 AM Age: 24 years old Clinical indication: Nausea and vomiting; Additional info: UTI and sepsis, R/O pyelo or obstructive uropathy TECHNIQUE: Imaging protocol: Computed tomography of the abdomen and pelvis without contrast. Radiation optimization: All CT scans at this facility use at least one of these dose optimization techniques: automated exposure control; mA and/or kV adjustment per patient size (includes targeted exams where dose is matched to clinical indication); or iterative reconstruction. COMPARISON: US abdomen complete* [id number] 09/18/2019 1:00 PM RADIATION DOSE METRICS: Total DLP: 278.17 mGy-cm FINDINGS: Lungs: Visualized portions of the lung bases are normal. Liver: Normal. No mass. Gallbladder and bile ducts: Normal. No calcified stones. No ductal dilation. Pancreas: Normal. No ductal dilation. Spleen: Normal. No splenomegaly. Adrenals: Normal. No mass. Kidneys and ureters: No renal calcifications, hydronephrosis, or hydroureter. Stomach and bowel: Unremarkable. No obstruction. No mucosal thickening. Appendix: Appendix normal. Intraperitoneal space: Trace of free fluid within the pelvis. Vasculature: Unremarkable. No abdominal aortic aneurysm. Lymph nodes: Unremarkable. No enlarged lymph nodes. Bladder: Unremarkable as visualized. Reproductive: Unremarkable as visualized. Bones/joints: Osseous structures are unremarkable. No fracture. Soft tissues: Unremarkable. Other findings: No acute intra-abdominal process. No inflammatory process. No obstruction. CT/CT abdomen pelvis wo con [id number] IMPRESSION: 1. No acute intra-abdominal process. No inflammatory process. No obstruction. 2. Trace of free fluid within the pelvis. 3. Appendix normal. 4. No renal calcifications, hydronephrosis, or hydroureter. No discrete evidence of pyelonephritis although the exam is limited given the lack of contrast material. Radiation Dose CTDIVOL = (mGy): DLP = 278.17 (mGy-cm)
[2019-09-18 19:55] LABS: Procalcitonin 0.02 ng/mL (0-0.5)
[2019-09-18 20:00] VITALS: BP 147/79; PULSE 71; RESP 16; TEMP 37.1; O2SAT 98
[2019-09-18 20:46] LABS: Estmated Average Glucose 114; Hemoglobin A1C 5.6 % (4.0-6.0)
[2019-09-18 20:52] LABS: Lactic Acid level (Lactate) 1.8 mmol/L (0.5-2.2)
[2019-09-18] MEDS: enoxaparin 40 mg/0.4 mL Syringe SUBCUT (21:51)
[2019-09-19] VITALS: BP 107/68; PULSE 90; RESP 20; TEMP 37.1; O2SAT 97
[2019-09-19 04:00] VITALS: BP 121/74; PULSE 68; RESP 20; TEMP 37.1; O2SAT 96
[2019-09-19 04:34] LABS: Basophils % 0.2 %; Hematocrit 40.5 % (37.0-47.0); Lymphocytes # 1.6 10^3/uL (0.8-4.8); Lymphocytes % 15.3 %; Mean Corpuscular HGB Conc 32.1 g/dL (30.0-36.0); Mean Corpuscular Hemoglobin 29.7 pg (28.0-34.0); Mean Corpuscular Volume 92.5 fL (81-99); Mean Platelet Volume 11.3 fL (7.4-10.4); Monocytes # 0.5 10^3/uL (0.2-0.9); Monocytes % 5.2 %; Neutrophils # 8.3 10^3/uL (1.8-7.7); Nucleated Red Blood Cells % 0 %; Platelet Count 292 10^3/cmm (130-400); Red Blood Count 4.38 10^6/uL (4.1-5.3); Red Cell Distribution Width 12.4 % (12.1-15.1); White Blood Count 10.5 10^3/uL (4.0-10.0)
[2019-09-19 05:04] LABS: Lactic Acid level (Lactate) 2.4 mmol/L (0.5-2.2)
[2019-09-19 05:08] LABS: Alanine Aminotransferase 10 U/L (0-33); Albumin Level 4.1 g/dL (3.5-5.2); Alkaline Phosphatase 43 IU/L (35-105); Anion Gap 17.6 (5-19); Aspartate Amino Transferase 17 U/L (0-32); Blood Urea Nitrogen 3 mg/dL (6-20); Calcium 9.2 mg/dL (8.5-10.5); Carbon Dioxide 19 mmol/L (22-29); Chloride 107 mmol/L (98-107); Globulin 2.9 g/dL (1.3-4.6); Glucose 116 mg/dL (65-115); Magnesium 1.9 mg/dL (1.7-2.3); Osmolality Calculated 287 mOsm/kg (285-295); Phosphorus 3.8 mg/dL (2.5-4.5); Potassium 3.6 mmol/L (3.5-5.1); Sodium 140 mmol/L (136-145); Total Bilirubin 0.5 mg/dL (0.15-1.2)
[2019-09-19 07:25] VITALS: BP 126/82; PULSE 65; RESP 18; TEMP 36.6; O2SAT 99
[2019-09-19] MEDS: escitalopram 10 mg Tablet 20 MG PO (07:53)
[2019-09-19] MEDS: sodium chloride 0.9% 1,000 ML 100 ML IV (10:29)
[2019-09-19 11:06] VITALS: BP 120/68; PULSE 83; RESP 16; TEMP 36.7; O2SAT 97
--- NOTE | 2019-09-19 11:23 | PC.CHAP ---
Pastoral Care Encounter/Spiritual Assessment Type of Contact [] Declined buildings painter visit [] Patient/Family/Request visit [] Outpatient visit [] Follow-up visit [] Physician referral [] Code/Alert [x] Routine visit [] Staff referral [] Actively dying [] Patient sleeping [] Family support [] [] Out of room [] Palliative care [] [x] Receiving care in room [] Pre-surgical visit [] Trauma [] Long length of stay [] ICU visit [] Other: Relational/Emotional Strength [x] Patient feels connected with others/family/visitors/staff [] Distress [] Loneliness/isolation [] Abandonment Spirituality of Patient [x] Person of Kat [] Attends Presybeterian of their Kat [x] Believes in Prayer [] Reads Bible or Protestant materials [] There are Spiritual issues to be addressed Prints And Drawings Curator Interventions [x] Prayer [x] Active listening [x] Non-anxious presence [x] Spiritual/emotional support [] Crisis/trauma care [x] Spiritual counseling [] Bereavement support [] Provided bereavement packet [] Provided Bible/devotional materials [] Provided toy/stuffed animal, coloring book to patient or family member [] Provided Communion [] Anointing/[place] [] Salvation [x] Completed spiritual assessment [] Other: Impact on Illness or Injury [] Angry [] Fearful [] Anxious [x] Often cries [] Exhaustion [] Unable to work [] Unable to attend denominational [] Unable to walk/stand [] Unable to read [] Unable to drive [] Unable to eat/drink [] Unable to sleep [] Unable to be with family [] Patient intubated [] Other: Summary Pain in both arms, legs, Vomiting, kindy infection, good attitude, going home today Time spent with patient 10 mins
--- NOTE | 2019-09-19 12:00 | P.DS_ITS ---
Discharge Providers Date of Admission: 09/18/19 15:59 Date of Discharge: September 19, 2019 Attending Provider at Admission: Gilmer Harden MD Attending Provider at Discharge: Gilmer Harden MD Primary Care Provider: Santo Valenzuela APN Diagnoses at Discharge Discharge Diagnosis (1) Pyelonephritis: Status: Acute (2) UTI (urinary tract infection): Status: Acute Qualifiers: Hematuria presence: without hematuria Urinary tract infection type: site unspecified Qualified Code(s): N39.0 - Urinary tract infection, site not specified (3) Sepsis: Status: Acute Qualifiers: Sepsis acute organ dysfunction status: without acute organ dysfunction Sepsis type: sepsis due to unspecified organism Qualified Code(s): A41.9 - Sepsis, unspecified organism Reason for Visit Reason for Visit: Reason For Visit: PAIN IN BOTH ARMS, LEGS, VOMITING Hospital Course Discharge Summary: Kailee Vernon is a 24 year old female with no significant past medical history presents to [facility] due to complaints of nausea, vomiting, malaise. Patient states that she lives in [place], has 3 kids, no recent travel, no sick sick contacts, no exposure to COVID-19. Patient states that she woke up this morning, with nausea, vomiting, malaise, no fevers, has chills, no lightheadedness, no dizziness, no diarrhea, no chest pain, no shortness of breath. Patient denies dysuria, hematuria, denies being , does report vaginal discharge, no abdominal pain, denies back pain, denies flank pain. Patient was admitted for pyelonephritis, with UTI and sepsis, white blood cell count 14.7, lactic acid 3.3, creatinine 0.9, bicarb 14, renal ultrasound was negative for obstructive uropathy, with no acute intra-abdominal process seen on CT scan of the abdomen. Patient remained afebrile, normotensive, no tachycardia, patient symptomatology significantly improved. On discharge patient remained afebrile, vitals within normal limits, patient clinically felt well, was ready to go home, patient was discharged on 7 remaining days of Levaquin, with a follow-up with her blood culture and urine cultures with her outpatient physician. So far blood cultures show no growth. Patient was advised to drink plenty of electrolyte balance fluids. Patient was advised if she were to feel lightheaded, dizzy, nausea, vomiting, fevers, chills to come back to emergency room. Physical Exam Const: COMMON NORMALS: no apparent distress and oriented x3 HENMT: COMMON NORMALS: normocephalic HEAD & SCALP: normocephalic Neck/C-Spine: COMMON NORMALS: no JVD Resp: COMMON NORMALS: normal respiratory effort, no retractions, no use of accessory muscles and clear to auscultation bilaterally AUSCULTATION: clear to auscultation bilaterally Cardio: COMMON NORMALS: no JVD, regular rate, regular rhythm, S1 normal heart sound and S2 normal heart sound RATE: regular rate RHYTHM: regular rhythm HEART SOUNDS: S1 normal and S2 normal GI: COMMON NORMALS: normal to inspection, nondistended, normoactive bowel sounds, soft to palpation, non-tender, no hepatosplenomegaly, no masses and no bruits PALPATION: Yes soft and Yes no hepatosplenomegaly Extremity: COMMON NORMALS: normal capillary refill, no clubbing, cyanosis or edema, no calf tenderness and no pedal edema Neuro: COMMON NORMALS: oriented x3 Psych: COMMON NORMALS: mental status grossly normal Discharge Data Data Completed and Pending: Completed Studies During Hospitalization Category Date Time Status CT abdomen pelvis wo con [id number] Urge nt Cat Scan 09/18/19 19:12 Completed US abdomen comple te* [id number] Urgent Ultrasound 09/18/19 12:37 Completed Pending at discharge Category Date Time Status Arterial Blood Ga s W/O Coox Routine Lab 09/18/19 14:50 Results Blood Culture Sta t Lab 09/18/19 13:00 Results Comprehensive Met abolic Panel AM LA BS Lab 09/20/19 04:00 Ordered Comprehensive Met abolic Panel AM LA BS Lab 09/21/19 04:00 Ordered Magnesium AM LABS Lab 09/20/19 04:00 Ordered Magnesium AM LABS Lab 09/21/19 04:00 Ordered Phosphorus AM LAB S Lab 09/20/19 04:00 Ordered Phosphorus AM LAB S Lab 09/21/19 04:00 Ordered Urine Culture Sta t Lab 09/18/19 14:23 Received Labs from last 24 hours 09/19/19 09/19/19 09/19/19 03:40 03:40 03:40 WBC 10.5 H RBC 4.38 Hgb 13.0 Hct 40.5 MCV 92.5 MCH 29.7 MCHC 32.1 RDW 12.4 Plt Count 292 MPV 11.3 H Neut % (Auto) 79.0 Lymph % (Auto) 15.3 Delta % (Auto) 5.2 Eos % (Auto) 0.0 Baso % (Auto) 0.2 Neut # (Auto) 8.3 H Lymph # (Auto) 1.6 Delta # (Auto) 0.5 Eos # (Auto) 0.0 Baso # (Auto) 0.0 Nucleated RBC % (a uto) 0 Nucleated RBCs # 0.0 Specimen Type Sample Site ABG pH ABG pCO2 ABG pO2 ABG HCO3 ABG Base Excess [place]qas Test Hematocrit FiO2 Electrician Chief ID Sodium 140 Potassium 3.6 Chloride 107 Carbon Dioxide 19 L Anion Gap 17.6 BUN 3 L Creatinine 0.7 GFR Calculation 102.0 Glucose 116 H Estimat Average Gl ucose Hemoglobin A1c Calculated Osmolal ity 287 Lactic Acid Lactic Acid (Sepsi s) 2.4 H Calcium 9.2 Phosphorus 3.8 Magnesium 1.9 Total Bilirubin 0.5 AST 17 ALT 10 Alkaline Phosphata se 43 C-Reactive Protein Total Protein 7.0 Albumin 4.1 Globulin 2.9 Lipase Procalcitonin HCG, Qual Urine Color Urine Appearance Urine pH Ur Specific Gravit y Urine Protein Urine Glucose (UA) Urine Ketones Urine Blood Urine Nitrate Urine Bilirubin Prot Sulfosalicyli c Acd Urine Urobilinogen Ur Leukocyte Jeannette ase Urine RBC Urine WBC Ur Squamous Epith Cells Amorphous Sediment Urine Bacteria Salicylates Urine Opiates Scre en Acetaminophen Ur Barbiturates Sc reen Phenytoin Valproic Acid Carbamazepine Ur Phencyclidine S crn Ur Amphetamines Sc reen U Benzodiazepines Scrn [place] Urine Cocaine Scre en U Marijuana (THC) Screen Ethyl Alcohol Serum Ketones 09/18/19 09/18/19 09/18/19 20:16 15:26 14:50 WBC RBC Hgb Hct MCV MCH MCHC RDW Plt Count MPV Neut % (Auto) Lymph % (Auto) Delta % (Auto) Eos % (Auto) Baso % (Auto) Neut # (Auto) Lymph # (Auto) Delta # (Auto) Eos # (Auto) Baso # (Auto) Nucleated RBC % (a uto) Nucleated RBCs # Specimen Type Arterial Sample Site Brachial, right ABG pH 7.48 H ABG pCO2 24.9 L ABG pO2 97.8 ABG HCO3 18.7 L ABG Base Excess -3.2 L [place]qas Test Pos Hematocrit 39.1 FiO2 21.0 Electrician Chief ID bd Sodium Potassium Chloride Carbon Dioxide Anion Gap BUN Creatinine GFR Calculation Glucose Estimat Average Gl ucose Hemoglobin A1c Calculated Osmolal ity Lactic Acid 3.3 H Lactic Acid (Sepsi s) 1.8 Calcium Phosphorus Magnesium Total Bilirubin AST ALT Alkaline Phosphata se C-Reactive Protein Total Protein Albumin Globulin Lipase Procalcitonin HCG, Qual Urine Color Urine Appearance Urine pH Ur Specific Gravit y Urine Protein Urine Glucose (UA) Urine Ketones Urine Blood Urine Nitrate Urine Bilirubin Prot Sulfosalicyli c Acd Urine Urobilinogen Ur Leukocyte Jeannette ase Urine RBC Urine WBC Ur Squamous Epith Cells Amorphous Sediment Urine Bacteria Salicylates Urine Opiates Scre en Acetaminophen Ur Barbiturates Sc reen Phenytoin Valproic Acid Carbamazepine Ur Phencyclidine S crn Ur Amphetamines Sc reen U Benzodiazepines Scrn [place] Urine Cocaine Scre en U Marijuana (THC) Screen Ethyl Alcohol Serum Ketones 09/18/19 09/18/19 09/18/19 14:23 14:23 13:00 WBC RBC Hgb Hct MCV MCH MCHC RDW Plt Count MPV Neut % (Auto) Lymph % (Auto) Delta % (Auto) Eos % (Auto) Baso % (Auto) Neut # (Auto) Lymph # (Auto) Delta # (Auto) Eos # (Auto) Baso # (Auto) Nucleated RBC % (a uto) Nucleated RBCs # Specimen Type Sample Site ABG pH ABG pCO2 ABG pO2 ABG HCO3 ABG Base Excess [place] Test Hematocrit FiO2 Electrician Chief ID Sodium Potassium Chloride Carbon Dioxide Anion Gap BUN Creatinine GFR Calculation Glucose Estimat Average Gl ucose Hemoglobin A1c Calculated Osmolal ity Lactic Acid Lactic Acid (Sepsi s) Calcium Phosphorus Magnesium Total Bilirubin AST ALT Alkaline Phosphata se C-Reactive Protein 1.0 Total Protein Albumin Globulin Lipase Procalcitonin 0.02 HCG, Qual Urine Color Yellow Urine Appearance Hazy A Urine pH 9 H Ur Specific Gravit y 1.010 Urine Protein Neg Urine Glucose (UA) Norm Urine Ketones 3+ H Urine Blood Neg Urine Nitrate Positive H Urine Bilirubin Neg Prot Sulfosalicyli c Acd Negative Urine Urobilinogen 1 H Ur Leukocyte Jeannette ase 2+ H Urine RBC None Urine WBC 25-40 H Ur Squamous Epith Cells 0-4 H Amorphous Sediment 1+ Urine Bacteria 2+ H Salicylates Urine Opiates Scre en Negative Acetaminophen Ur Barbiturates Sc reen Positive H Phenytoin Valproic Acid Carbamazepine Ur Phencyclidine S crn Negative Ur Amphetamines Sc reen Negative U Benzodiazepines Scrn Positive H [place] Urine Cocaine Scre en Negative U Marijuana (THC) Screen Positive H Ethyl Alcohol Serum Ketones 09/18/19 09/18/19 09/18/19 13:00 13:00 13:00 WBC RBC Hgb Hct MCV MCH MCHC RDW Plt Count MPV Neut % (Auto) Lymph % (Auto) Delta % (Auto) Eos % (Auto) Baso % (Auto) Neut # (Auto) Lymph # (Auto) Delta # (Auto) Eos # (Auto) Baso # (Auto) Nucleated RBC % (a uto) Nucleated RBCs # Specimen Type Sample Site ABG pH ABG pCO2 ABG pO2 ABG HCO3 ABG Base Excess [place] Test Hematocrit FiO2 Electrician Chief ID Sodium Potassium Chloride Carbon Dioxide Anion Gap BUN Creatinine GFR Calculation Glucose Estimat Average Gl ucose 114 Hemoglobin A1c 5.6 Calculated Osmolal ity Lactic Acid Lactic Acid (Sepsi s) Calcium Phosphorus Magnesium Total Bilirubin AST ALT Alkaline Phosphata se C-Reactive Protein Total Protein Albumin Globulin Lipase Procalcitonin HCG, Qual Urine Color Urine Appearance Urine pH Ur Specific Gravit y Urine Protein Urine Glucose (UA) Urine Ketones Urine Blood Urine Nitrate Urine Bilirubin Prot Sulfosalicyli c Acd Urine Urobilinogen Ur Leukocyte Jeannette ase Urine RBC Urine WBC Ur Squamous Epith Cells Amorphous Sediment Urine Bacteria Salicylates < 0.3 L Urine Opiates Scre en Acetaminophen < 5.0 L Ur Barbiturates Sc reen Phenytoin 0.8 L Valproic Acid 2.8 L Carbamazepine 2.0 L Ur Phencyclidine S crn Ur Amphetamines Sc reen U Benzodiazepines Scrn [place] 0.1 L Urine Cocaine Scre en U Marijuana (THC) Screen Ethyl Alcohol Serum Ketones 09/18/19 09/18/19 09/18/19 13:00 13:00 13:00 WBC RBC Hgb Hct MCV MCH MCHC RDW Plt Count MPV Neut % (Auto) Lymph % (Auto) Delta % (Auto) Eos % (Auto) Baso % (Auto) Neut # (Auto) Lymph # (Auto) Delta # (Auto) Eos # (Auto) Baso # (Auto) Nucleated RBC % (a uto) Nucleated RBCs # Specimen Type Sample Site ABG pH ABG pCO2 ABG pO2 ABG HCO3 ABG Base Excess [place]qas Test Hematocrit FiO2 Electrician Chief ID Sodium 136 Potassium 3.2 L Chloride 101 Carbon Dioxide 14 L Anion Gap 24.2 H BUN 9 Creatinine 0.9 GFR Calculation 76.3 L Glucose 201 H Estimat Average Gl ucose Hemoglobin A1c Calculated Osmolal ity 284 L Lactic Acid Lactic Acid (Sepsi s) Calcium 8.8 Phosphorus Magnesium 1.9 Total Bilirubin 0.4 AST 21 ALT 11 Alkaline Phosphata se 48 C-Reactive Protein Total Protein 7.3 Albumin 4.6 Globulin 2.7 Lipase 20 Procalcitonin HCG, Qual Negative Urine Color Urine Appearance Urine pH Ur Specific Gravit y Urine Protein Urine Glucose (UA) Urine Ketones Urine Blood Urine Nitrate Urine Bilirubin Prot Sulfosalicyli c Acd Urine Urobilinogen Ur Leukocyte Jeannette ase Urine RBC Urine WBC Ur Squamous Epith Cells Amorphous Sediment Urine Bacteria Salicylates Urine Opiates Scre en Acetaminophen Ur Barbiturates Sc reen Phenytoin Valproic Acid Carbamazepine Ur Phencyclidine S crn Ur Amphetamines Sc reen U Benzodiazepines Scrn [place] Urine Cocaine Scre en U Marijuana (THC) Screen Ethyl Alcohol < 10 Serum Ketones Negative 09/18/19 13:00 WBC 14.7 H RBC 4.65 Hgb 13.8 Hct 42.4 MCV 91.2 MCH 29.7 MCHC 32.5 RDW 12.1 Plt Count 320 MPV 10.5 H Neut % (Auto) 87.4 Lymph % (Auto) 10.3 Delta % (Auto) 1.6 Eos % (Auto) 0.1 Baso % (Auto) 0.3 Neut # (Auto) 12.9 H Lymph # (Auto) 1.5 Delta # (Auto) 0.2 Eos # (Auto) 0.0 Baso # (Auto) 0.1 Nucleated RBC % (a uto) 0 Nucleated RBCs # 0.0 Specimen Type Sample Site ABG pH ABG pCO2 ABG pO2 ABG HCO3 ABG Base Excess [place] Test Hematocrit FiO2 Electrician Chief ID Sodium Potassium Chloride Carbon Dioxide Anion Gap BUN Creatinine GFR Calculation Glucose Estimat Average Gl ucose Hemoglobin A1c Calculated Osmolal ity Lactic Acid Lactic Acid (Sepsi s) Calcium Phosphorus Magnesium Total Bilirubin AST ALT Alkaline Phosphata se C-Reactive Protein Total Protein Albumin Globulin Lipase Procalcitonin HCG, Qual Urine Color Urine Appearance Urine pH Ur Specific Gravit y Urine Protein Urine Glucose (UA) Urine Ketones Urine Blood Urine Nitrate Urine Bilirubin Prot Sulfosalicyli c Acd Urine Urobilinogen Ur Leukocyte Jeannette ase Urine RBC Urine WBC Ur Squamous Epith Cells Amorphous Sediment Urine Bacteria Salicylates Urine Opiates Scre en Acetaminophen Ur Barbiturates Sc reen Phenytoin Valproic Acid Carbamazepine Ur Phencyclidine S crn Ur Amphetamines Sc reen U Benzodiazepines Scrn [place] Urine Cocaine Scre en U Marijuana (THC) Screen Ethyl Alcohol Serum Ketones Vitals: Last Vital Signs Temp 98.0 F 09/19/19 11:06 Pulse 83 09/19/19 11:06 Resp 16 09/19/19 11:06 BP 120/68 09/19/19 11:06 Pulse Ox 97 09/19/19 11:06 Discharge Plan Discharge Patient Disposition: Home, Self-Care Condition: Stable Prescriptions: New Levaquin 750 mg tablet 750 mg PO DAILY 7 Days Qty: 7 RF: 0 Zofran 4 mg tablet 4 mg PO Q12H PRN (Reason: nausea and vomiting) 5 Days Qty: 10 RF: 0 Continued ibuprofen 800 mg tablet 800 mg PO TID PRN (Reason: Pain) RF: 0 ondansetron 4 mg tablet,disintegrating 4 mg PO PRN RF: 0 escitalopram oxalate 20 mg tablet 20 mg PO DAILY RF: 0 Lo Loestrin Fe 1 mg-10 mcg (24)/10 mcg (2) tablet 1 tab PO DAILY RF: 0 28 mg iron- 800 mcg Tablet 1 tab PO DAILY RF: 0 Discharge Orders: Discharge Order (Routine); Ordered 09/19/19 Ordered By: Gilmer Harden Referrals: Santo Valenzuela SAND POLISHER [Primary Care Provider] - Discharge Diet: Regular Discharge Activity: Resume usual activity Patient Instructions: Acute Pyelonephritis (GEN) Discharge Attestations Time Spent in Discharge Care*: less than 30 min Quality Metrics Clinical Quality Measures During this hospital stay, did patient experience: None Coding Level of Care Code Acute Travelers' Aid Worker for [facility] Fwd Diagnoses Pyelonephritis N12 UTI (urinary tract infection) N39.0 Hematuria presence: without hematuria Urinary tract infection type: site unspecified Sepsis A41.9 Sepsis acute organ dysfunction status: without acute organ dysfunction Sepsis type: sepsis due to unspecified organism
[2019-09-19 14:25] VITALS: BP 120/68; PULSE 83; RESP 16; TEMP 36.7; O2SAT 97
== END 2019-09-19 14:26 | disposition home or self-care (01) ==
LOC: ER 15:05 → MEDSURG 18:11
PROVIDERS: Admitting Provider Family Medicine; Emergency Provider Emergency Medicine; PCP Nurse Practitioner Family; Visit Provider Family Medicine
DX: A41.9 Sepsis, unspecified organism (principal); N12 Tubulo-interstitial nephritis, not specified as acute or chronic; N39.0 Urinary tract infection, site not specified; Z82.49 Family history of ischemic heart disease and other diseases of the circulatory system
CPT/HCPCS: 12345; 36415; 36600; 74176; 76700; 80053; 80156; 80164; 80178; 80185; 80306; 80307; 81001; 82009; 82803; 83036; 83605; 83690; 83735; 84100; 84145; 84703; 85025; 86140; 87040; 87077; 87086; 87186; 93005; 94664; 96361; 96365; 96366; 96367; 96368; 96372; 96375; 99283; 99285; G0378; J0696; J1200; J1650; J2405; J2765; J3480; J7030

== ENCOUNTER 2020-06-18 19:16 | Emergency (ER) | payer BC, SELFPAY ==
[2020-06-18 19:23] VITALS: BP 114/76; PULSE 77; RESP 22; TEMP 36.8; O2SAT 100; BMI 15.9
--- NOTE | 2020-06-18 19:30 | W.ED.NAVMDI ---
HPI - Nausea/Vomiting/Diarrhea General: Chief complaint: Nausea/Vomiting/Diarrhea Stated complaint: Vomiting,shakes, numbness in hands and feet Time Seen by Provider: 06/18/20 19:28 History of Present Illness: HPI Narrative: Patient is a 25-year-old female comes to the ED with nausea and vomiting. Patient says symptoms started earlier today. She says she is having uncontrollable nausea vomiting and states she has had this in the past and was admitted in the hospital on September 2019 for sepsis due to pyelonephritis. She also states she has had this nausea and vomiting other times and medical providers have told her likely due to her marijuana use. She admits to being daily chronic marijuana smoker. Patient was seen at [facility] today and diagnosed with a UTI and put on some antibiotics and nausea meds. She denies any fever, chills, abdominal pain, chest pain, shortness of breath, bladder or bowel symptoms. Denies dysuria or hematuria. Associated nausea: Yes Associated symtoms: Reports nausea; Denies change in vision, chest pain, dysuria, fatigue, headache(s) or palpitations Review of Systems Const: Denies: fever(s), chills or fatigue Eyes: Denies: change in vision or eye discomfort ENMT: Denies: throat pain, odynophagia, nasal discharge or nasal congestion Card: Denies: chest pain, palpitations, edema, swelling of feet/ankles, dyspnea on exertion or orthopnea Resp: Denies: dyspnea, productive cough or non-productive cough GI: Reports: nausea and vomiting; Denies: abdominal pain, diarrhea, constipation or hematochezia : Denies: flank pain, dysuria or hematuria Musc: Denies: neck pain, back pain or extremity swelling Skin/Breast: Denies: rash or new lesions Neuro: Denies: headache(s), numbness in extremities or weakness in extremities PFS ED PFSH: Medical History No pertinent past medical history Surgical History No history of previous surgery Family History Other CAD (coronary artery disease) Female Reproductive History: Date of last menstrual period: 05/30/20 Physical Exam Const: COMMON NORMALS: patient oriented x3 and alert GENERAL APPEARANCE: cooperative and in distress (Patient is moaning and constantly moving in bed.) HENMT: COMMON NORMALS: normocephalic HEAD & SCALP: normocephalic MOUTH: Normal oral and palatal mucosa present THROAT: posterior oropharynx normal and uvula midline Eye: COMMON NORMALS: Equal, round and reactive pupils present PUPIL: Yes Equal, round and reactive pupils present Neck/C-Spine: COMMON NORMALS: supple GENERAL: Yes normal visual inspection Resp: COMMON NORMALS: normal respiratory effort, No retractions, No use of accessory muscles and clear to auscultation bilaterally AUSCULTATION: clear to auscultation bilaterally Cardio: COMMON NORMALS: regular rate, regular rhythm, S1 normal heart sound present, S2 normal heart sound present, No gallops present (Cardio), No clicks present (Cardio), No murmurs present (Cardio) and Peripheral pulses 2+ throughout RATE: regular rate RHYTHM: regular rhythm HEART SOUNDS: S1 normal heart sound present and S2 normal heart sound present PERIPHERAL PULSES: Peripheral pulses 2+ throughout GI: COMMON NORMALS: Normal to inspection, nondistended, normoactive bowel sounds present, Soft to palpation, non-tender and no masses PALPATION: Yes Soft to palpation : COMMON NORMALS: Yes no CVA tenderness BLADDER/KIDNEY EXAM: Yes no CVA tenderness Back/Pelvis: COMMON NORMALS: no CVA tenderness Extremity: COMMON NORMALS: normal to inspection and no pedal edema Neuro: COMMON NORMALS: patient oriented x3 and moves all extremities SENSORIUM/ORIENTATION: Yes alert Skin: GENERAL SKIN EXAM: dry skin Course Reevaluation(s): Reevaluation #1: Patient's nausea and vomiting was well controlled while here in the ED and improved after IV fluids and Reglan. She is lying comfortably on exam bed now. Patient was stable and ready for discharge. Vital Signs: Vital signs: Vital Signs Temperature 98.3 F 06/18/20 19:23 Pulse Rate 74 06/18/20 23:16 Respiratory Rate 16 06/18/20 23:16 Blood Pressure 105/65 06/18/20 23:16 Pulse Oximetry 98 06/18/20 23:16 MDM - Nausea/Vomiting/Diarrhea MDM Narrative: Medical decision making narrative: Patient is a 25-year-old female comes to the ED with acute nausea and vomiting. Symptoms started today. Denies any fever, chills or UTI symptoms. Patient was seen at [facility] earlier today and they diagnosed her with a UTI and sent her home on some antibiotics. Patient has a history of chronic daily marijuana use. Exam showed a patient in some distress, moaning and constantly moving about in bed. Potassium 3.2 and the rest of CBC and CMP were unremarkable. Urinalysis showed mild UTI. Patient's symptoms were controlled with IV fluids and Reglan. Patient improved greatly and was ready to be discharged. Patient was also given a dose of potassium chloride to treat her low potassium. Patient was ready for discharge and diagnosed with cannabinoid hyperemesis syndrome and UTI. She was discharged with an dissolvable Zofran prescription and told to continue taking her previously prescribed antibiotics for UTI. Drink plenty of fluids and stay hydrated. Return to ED precautions given. Patient understood and agree with plan. Lab Data: Attestation: I reviewed the patient's lab results. Labs: Lab Results 06/18/20 06/18/20 06/18/20 Range/Units 20:04 20:04 20:04 WBC 9.1 (4.0-10.0) 10^3/ uL RBC 4.13 (4.1-5.3) 10^6/u L Hgb 12.5 (11.5-15.3) g/dL Hct 38.4 (37.0-47.0) % MCV 93.0 (81-99) fL MCH 30.3 (28.0-34.0) pg MCHC 32.6 (30.0-36.0) g/dL RDW 12.3 (12.1-15.1) % Plt Count 307 (130-400) 10^3/c mm MPV 10.5 H (7.4-10.4) fL Neut % (Auto) 91.7 % Lymph % (Auto) 6.2 % [place] % (Auto) 1.8 % Eos % (Auto) 0.0 % Baso % (Auto) 0.2 % Neut # (Auto) 8.34 H (1.8-7.7) 10^3/u L Lymph # (Auto) 0.6 L (0.8-4.8) 10^3/u L [place] # (Auto) 0.2 (0.2-0.9) 10^3/u L Eos # (Auto) 0.0 (0.0-0.8) 10^3/u L Baso # (Auto) 0.0 (0.0-0.1) 10^3/u L Nucleated RBC % (a uto) 0 % Nucleated RBCs # 0.0 /100WBC Sodium 138 (136-145) mmol/L Potassium 3.2 L (3.5-5.1) mmol/L Chloride 105 (98-107) mmol/L Carbon Dioxide 15 L (22-29) mmol/L Anion Gap 21.2 H (5-19) BUN 10 (6-20) mg/dL Creatinine 0.6 (0.5-0.9) mg/dL GFR Calculation 120.8 (90-130) mL/min Glucose 130 H (65-115) mg/dL Calculated Osmolal ity 287 (285-295) mOsm/k g Calcium 8.9 (8.5-10.5) mg/dL Total Bilirubin 0.8 (0.15-1.2) mg/dL AST 19 (0-32) U/L ALT 15 (0-33) U/L Alkaline Phosphata se 63 (35-105) IU/L Total Protein 7.2 (6.6-8.7) g/dL Albumin 4.2 (3.5-5.2) g/dL Globulin 3.0 (1.3-4.6) g/dL Lipase 15 (13-60) U/L HCG, Qual Negative (Negative) Urine Color (Yellow) Urine Appearance (CLEAR) Urine pH (5-7) Ur Specific Gravit y (1.005-1.030) Urine Protein (Negative) Urine Glucose (UA) (Normal) Urine Ketones (Negative) Urine Blood (Negative) Urine Nitrate (Negative) Urine Bilirubin (Negative) Prot Sulfosalicyli c Acd (Negative) Urine Urobilinogen (Negative) mg/dL Ur Leukocyte Jeannette ase (Negative) Urine RBC (0-2) /hpf Urine WBC (0-5) /hpf Ur Squamous Epith Cells (0-5) /hpf Amorphous Sediment Urine Bacteria (NONE) /hpf Urine Mucus /hpf 06/18/20 Range/Units 20:30 WBC (4.0-10.0) 10^3/ uL RBC (4.1-5.3) 10^6/u L Hgb (11.5-15.3) g/dL Hct (37.0-47.0) % MCV (81-99) fL MCH (28.0-34.0) pg MCHC (30.0-36.0) g/dL RDW (12.1-15.1) % Plt Count (130-400) 10^3/c mm MPV (7.4-10.4) fL Neut % (Auto) % Lymph % (Auto) % [place] % (Auto) % Eos % (Auto) % Baso % (Auto) % Neut # (Auto) (1.8-7.7) 10^3/u L Lymph # (Auto) (0.8-4.8) 10^3/u L [place] # (Auto) (0.2-0.9) 10^3/u L Eos # (Auto) (0.0-0.8) 10^3/u L Baso # (Auto) (0.0-0.1) 10^3/u L Nucleated RBC % (a uto) % Nucleated RBCs # /100WBC Sodium (136-145) mmol/L Potassium (3.5-5.1) mmol/L Chloride (98-107) mmol/L Carbon Dioxide (22-29) mmol/L Anion Gap (5-19) BUN (6-20) mg/dL Creatinine (0.5-0.9) mg/dL GFR Calculation (90-130) mL/min Glucose (65-115) mg/dL Calculated Osmolal ity (285-295) mOsm/k g Calcium (8.5-10.5) mg/dL Total Bilirubin (0.15-1.2) mg/dL AST (0-32) U/L ALT (0-33) U/L Alkaline Phosphata se (35-105) IU/L Total Protein (6.6-8.7) g/dL Albumin (3.5-5.2) g/dL Globulin (1.3-4.6) g/dL Lipase (13-60) U/L HCG, Qual (Negative) Urine Color Yellow (Yellow) Urine Appearance Sl hazy (CLEAR) Urine pH 8 H (5-7) Ur Specific Gravit y 1.010 (1.005-1.030) Urine Protein Neg (Negative) Urine Glucose (UA) Norm (Normal) Urine Ketones 3+ H (Negative) Urine Blood Neg (Negative) Urine Nitrate Negative (Negative) Urine Bilirubin Neg (Negative) Prot Sulfosalicyli c Acd Negative (Negative) Urine Urobilinogen 1 H (Negative) mg/dL Ur Leukocyte Jeannette ase Negative (Negative) Urine RBC 5-10 H (0-2) /hpf Urine WBC 0-4 H (0-5) /hpf Ur Squamous Epith Cells 5-10 H (0-5) /hpf Amorphous Sediment Not Reportable Urine Bacteria 2+ H (NONE) /hpf Urine Mucus Trace /hpf Discharge Plan Discharge Patient Disposition: Home Clinical Impression: Cannabinoid hyperemesis syndrome UTI (urinary tract infection) Qualifiers: Urinary tract infection type: acute cystitis Hematuria presence: with hematuria Qualified Code(s): N30.01 - Acute cystitis with hematuria Condition: Stable Prescriptions: New ondansetron 4 mg tablet,disintegrating 4 mg PO Q8H Qty: 30 RF: 0 No Action ibuprofen 800 mg tablet 800 mg PO TID PRN (Reason: Pain) RF: 0 ondansetron 4 mg tablet,disintegrating 4 mg PO PRN RF: 0 escitalopram oxalate 20 mg tablet 20 mg PO DAILY@0800 RF: 0 nicotine 14 mg/24 hr patch 24 hour See Rx Instructions .ROUTE .COMPLEX RF: 0 promethazine 12.5 mg tablet 12.5 mg PO Q6H PRN (Reason: nausea/vomiting) RF: 0 famotidine 20 mg tablet 20 mg PO DAILY@0800 RF: 0 cefuroxime axetil 500 mg tablet 500 mg PO DAILY@0800 RF: 0 albuterol sulfate 90 mcg/actuation HFA aerosol inhaler 2 puff INHALATION Q6H PRN (Reason: Shortness Of Breath) RF: 0 Discharge Orders: Discharge ED (Routine); Ordered 06/18/20 Ordered By: Dave Meraz Referrals: Bianca Blanchard APN [Primary Care Provider] - Discharge Diet: Advance as tolerated and Clear Liquid Discharge Activity: Increase activity as tolerated Patient Instructions: Urinary Tract Infection in Women (ED), Acute Nausea and Vomiting (ED) Activity Restrictions/Additional Instructions: Follow-up with medical provider as directed in 7 to 10 days for reevaluation. Continue taking the previously prescribed antibiotic to treat UTI. Cessation of marijuana use to help prevent cannabinoid hyperemesis syndrome. Drink plenty of fluids and stay hydrated. Take the prescribed dissolvable Zofran as needed for nausea. return to the ER or your medical provider if condition worsens. Please read and understand discharge instructions. If any questions, please ask. Coding Level of Care Code ED Marine Pilot for Caden Fwcarmencita Exam Comprehensive
[2020-06-18] MEDS: sodium chloride 0.9% 1,000 ML 999 ML IV (20:10)
[2020-06-18] MEDS: metoclopramide 5 mg/mL SDV 2 mL 10 MG IVP ×2 (20:10→22:17)
[2020-06-18 20:13] LABS: Basophils % 0.2 %; Hematocrit 38.4 % (37.0-47.0); Hemoglobin 12.5 g/dL (11.5-15.3); Lymphocytes # 0.6 10^3/uL (0.8-4.8); Lymphocytes % 6.2 %; Mean Corpuscular HGB Conc 32.6 g/dL (30.0-36.0); Mean Corpuscular Hemoglobin 30.3 pg (28.0-34.0); Mean Platelet Volume 10.5 fL (7.4-10.4); Monocytes # 0.2 10^3/uL (0.2-0.9); Monocytes % 1.8 %; Neutrophils # 8.34 10^3/uL (1.8-7.7); Neutrophils % 91.7 %; Nucleated Red Blood Cells % 0 %; Platelet Count 307 10^3/cmm (130-400); Red Blood Count 4.13 10^6/uL (4.1-5.3); Red Cell Distribution Width 12.3 % (12.1-15.1); White Blood Count 9.1 10^3/uL (4.0-10.0)
[2020-06-18 20:22] LABS: HCG, Serum Qual Negative (Negative)
[2020-06-18 20:25] VITALS: BP 125/52; PULSE 84; RESP 20; O2SAT 97
[2020-06-18 20:27] LABS: Alanine Aminotransferase 15 U/L (0-33); Albumin Level 4.2 g/dL (3.5-5.2); Alkaline Phosphatase 63 IU/L (35-105); Anion Gap 21.2 (5-19); Aspartate Amino Transferase 19 U/L (0-32); Blood Urea Nitrogen 10 mg/dL (6-20); Calcium 8.9 mg/dL (8.5-10.5); Carbon Dioxide 15 mmol/L (22-29); Chloride 105 mmol/L (98-107); Glomerular Filtration Rate 120.8 mL/min (90-130); Glucose 130 mg/dL (65-115); Lipase 15 U/L (13-60); Osmolality Calculated 287 mOsm/kg (285-295); Potassium 3.2 mmol/L (3.5-5.1); Sodium 138 mmol/L (136-145); Total Bilirubin 0.8 mg/dL (0.15-1.2); Total Protein 7.2 g/dL (6.6-8.7)
[2020-06-18 20:52] LABS: Bilirubin Urine Neg (Negative); Blood Urine Neg (Negative); Glucose Urine UA Norm (Normal); Ketones Urine 3+ (Negative); Leukocyte Esterase Urine Negative (Negative); Nitrate Urine Negative (Negative); Protein Urine Neg (Negative); Sulfosalicylic Acid Urine Negative (Negative); Urine Appearance SL Hazy (CLEAR); Urine Color Yellow (Yellow); Urobilinogen Urine 1 mg/dL (Negative); pH Urine 8 (5-7)
[2020-06-18 20:58] LABS: WBC Urine 0-4 /hpf (0-5)
[2020-06-18 20:59] LABS: Add Urine Culture? Yes; Bacteria Urine 2+ /hpf; Mucus Urine TRACE /hpf
[2020-06-18 21:17] VITALS: BP 125/52; PULSE 74; RESP 16; O2SAT 98
[2020-06-18 23:16] VITALS: BP 105/65; PULSE 74; RESP 16; O2SAT 98
== END 2020-06-18 23:10 | disposition home or self-care (01) ==
PROVIDERS: Emergency Provider Physician Assistant; PCP Nurse Practitioner Family
DX: F12.988 Cannabis use, unspecified with other cannabis-induced disorder (principal); R11.2 Nausea with vomiting, unspecified; N30.01 Acute cystitis with hematuria
CPT/HCPCS: 12345; 80053; 81001; 83690; 84703; 85025; 87086; 96361; 96374; 96375; 99283; J2765; J7030

== ENCOUNTER → 2021-12-30 09:20 | Outpatient (BNVA) | payer BC, SELFPAY | PROVIDERS: PCP Nurse Practitioner Family; Visit Provider Nurse Practitioner Women's Health | DX: N92.6 Irregular menstruation, unspecified (principal); F41.9 Anxiety disorder, unspecified; F32.A Depression, unspecified | CPT/HCPCS: 81025 ==

== ENCOUNTER → 2022-01-02 13:24 | Outpatient (BNVA) | payer BC, SELFPAY | PROVIDERS: PCP Nurse Practitioner Family; Visit Provider Obstetrics & Gynecology | DX: Z36.89 Encounter for other specified antenatal screening (principal) | CPT/HCPCS: 76801; 76817 ==

== ENCOUNTER 2022-01-14 19:55 | Emergency (ER) | payer BC, SELFPAY ==
[2022-01-14 20:11] VITALS: BP 122/65; PULSE 87; RESP 17; TEMP 36.6; O2SAT 99
[2022-01-14 20:43] LABS: Basophils % 0.1 %; Hematocrit 41.4 % (37.0-47.0); Hemoglobin 13.7 g/dL (11.5-15.3); Lymphocytes # 0.7 10^3/uL (0.8-4.8); Lymphocytes % 5.2 %; Mean Corpuscular HGB Conc 33.1 g/dL (30.0-36.0); Mean Corpuscular Hemoglobin 31.1 pg (28.0-34.0); Mean Corpuscular Volume 94.1 fl (81-99); Mean Platelet Volume 10.4 fL (7.4-10.4); Monocytes # 0.1 10^3/uL (0.2-0.9); Neutrophils # 13.05 10^3/uL (1.8-7.7); Neutrophils % 93.3 %; Nucleated Red Blood Cells % 0 %; Platelet Count 266 10^3/cmm (130-400)
[2022-01-14 21:55] LABS: Alanine Aminotransferase 10 U/L (0-33); Albumin Level 4.6 g/dL (3.5-5.2); Alkaline Phosphatase 64 U/L (35-105); Anion Gap 26.4 (5-19); Aspartate Amino Transferase 16 U/L (0-32); Blood Urea Nitrogen 6 mg/dL (6-20); Calcium 9.4 mg/dL (8.5-10.5); Carbon Dioxide 13 mmol/L (22-29); Chloride 101 mmol/L (98-107); Globulin 2.6 g/dL (1.3-4.6); Glucose 119 mg/dL (65-115); Lipase 16 U/L (13-60); Osmolality Calculated 283 mOsm/kg (285-295); Potassium 3.4 mmol/L (3.5-5.1); Sodium 137 mmol/L (136-145); Total Bilirubin 0.5 mg/dL (0.15-1.2); Total Protein 7.2 g/dL (6.6-8.7)
--- NOTE | 2022-01-14 23:18 | ED_ITS ---
HPI - Nausea/Vomiting/Diarrhea General: Chief complaint: Nausea/Vomiting/Diarrhea Stated complaint: N/V Time Seen by Provider: 01/14/22 23:16 History of Present Illness: 26-year-old female comes in today for complaints of nausea and vomiting. Patient is 10 weeks . Patient denies any vaginal bleeding or discharge. Patient reports no fever or chills. Patient appears nontoxic. Patient appears unwell. Patient appears in no pain. Associated nausea: Yes Associated symtoms: Reports nausea; Denies chest pain Review of Systems Const: Denies: fever(s) Card: Denies: chest pain Resp: Denies: dyspnea GI: Reports: nausea and vomiting PFS ED PFSH: Medical History (Updated 01/15/22 @ 00:41 by PAMELA Vazquez) Anxiety and depression Environmental allergies No pertinent past medical history neghx: htn,dm,thyroid,dvt/pe PCP: Crystal Bl[facility]ard Surgical History (Updated 12/30/21 @ 09:57 by Alison Saini APN, MARIE) No history of previous surgery Family History Grandfather Colon cancer Maternal--dx age unknown Diabetes Maternal Denies family history of Ovarian cancer Heart disease Hypercholesteremia Breast cancer Hypertension Uterine cancer Thyroid disease Stroke Social History Smoking and tobacco status: current some day smoker Female Reproductive History: Date of last menstrual period: 05/30/20 Physical Exam Const: COMMON NORMALS: alert HENMT: COMMON NORMALS: normocephalic HEAD & SCALP: normocephalic THROAT: posterior oropharynx normal Resp: COMMON NORMALS: normal respiratory effort Cardio: COMMON NORMALS: regular rate RATE: regular rate GI: COMMON NORMALS: Soft to palpation PALPATION: Yes Soft to palpation Extremity: COMMON NORMALS: no pedal edema Neuro: SENSORIUM/ORIENTATION: Yes alert Skin: COMMON NORMALS: turgor normal GENERAL SKIN EXAM: turgor normal Course 2 Vital Signs: Vital signs: Vital Signs Temperature 98 F 01/14/22 20:11 Pulse Rate 87 01/14/22 20:11 Respiratory Rate 17 01/14/22 20:11 Blood Pressure 122/65 01/14/22 20:11 Pulse Oximetry 99 01/14/22 20:11 Oxygen Delivery Me thod 01/14/22 20:11 MDM - Nausea/Vomiting/Diarrhea Medical Decision Making Patient came in today for persistent nausea and vomiting. Patient reports unable to hold down fluids today. Patient is 10 weeks and has had frequent episodes of nausea and vomiting with this . On exam abdomen soft nontender. Skin is warm and dry. Oral mucosa is tacky. Differential diagnosis includes but not limited to UTI, dehydration, hyperemesis gravidarum, lecture light imbalance. CBC and CMP were noted for some mild elevation of sen kocytes at 14,000, potassium was 3.4 creatinine was 0.5. Urinalysis was clear. Patient was treated for mild dehydration with 1 L of IV fluids given 10 mg of Reglan with improvement in nausea and vomiting with ability to hold fluids down. Patient was also given 12 and half milligrams tablet of Phenergan p.o. and was able to tolerate it. Patient will be continued with Reglan orally and Phenergan as needed rectally. Patient reported understanding of plan with need for follow-up with primary care for further instruction. Lab Data : 01/14/22 20:33 01/14/22 20:33 Laboratory Results WBC 14.0 10^3/uL (4.0-10.0) H 01/14/22 20: RBC 4.40 10^6/uL (4.1-5.3) 01/14/22 20:33 Hgb 13.7 g/dL (11.5-15.3) 01/14/22 20: Hct 41.4 % (37.0-47.0) 01/14/22 20: MCV 94.1 fl (81-99) 01/14/22 20:33 MCH 31.1 pg (28.0-34.0) 01/14/22 20: MCHC 33.1 g/dL (30.0-36.0) 01/14/22 20: RDW 12.0 % (12.1-15.1) L 01/14/22 20:33 Plt Count 266 10^3/cmm (130-400) 01/14/22 20: MPV 10.4 fL (7.4-10.4) 01/14/22 20:33 Neut % (Auto) 93.3 % 01/14/22 20:33 Lymph % (Auto) 5.2 % 01/14/22 20:33 [place] % (Auto) 1.0 % 01/14/22 20:33 Eos % (Auto) 0.0 % 01/14/22 20:33 Baso % (Auto) 0.1 % 01/14/22 20:33 Neut # (Auto) 13.05 10^3/uL (1.8-7.7) H 01/14/22 20:33 Lymph # (Auto) 0.7 10^3/uL (0.8-4.8) L 01/14/22 20:33 [place] # (Auto) 0.1 10^3/uL (0.2-0.9) L 01/14/22 20: Eos # (Auto) 0.0 10^3/uL (0.0-0.8) 01/14/22 20: Baso # (Auto) 0.0 10^3/uL (0.0-0.1) 01/14/22 20:33 Nucleated RBC % (auto) 0 % 01/14/22 20: Nucleated RBCs # 0.0 /100WBC 01/14/22 20:33 Sodium 137 mmol/L (136-145) 01/14/22 20:33 Potassium 3.4 mmol/L (3.5-5.1) L 01/14/22 20:33 Chloride 101 mmol/L (98-107) 01/14/22 20: Carbon Dioxide 13 mmol/L (22-29) L 01/14/22 20:33 Anion Gap 26.4 (5-19) H 01/14/22 20:33 BUN 6 mg/dL (6-20) 01/14/22 20:33 Creatinine 0.5 mg/dL (0.5-0.9) 01/14/22 20:33 GFR Calculation 148.0 mL/min (90-130) H 01/14/22 20:33 Glucose 119 mg/dL (65-115) H 01/14/22 20:33 Calculated Osmolality 283 mOsm/kg (285-295) L 01/14/22 20:33 Calcium 9.4 mg/dL (8.5-10.5) 09/07/22 20:33 Total Bilirubin 0.5 mg/dL (0.15-1.2) 01/14/22 20:33 AST 16 U/L (0-32) 01/14/22 20:33 ALT 10 U/L (0-33) 01/14/22 20:33 Alkaline Phosphatase 64 U/L (35-105) 01/14/22 20:33 Total Protein 7.2 g/dL (6.6-8.7) 01/14/22 20:33 Albumin 4.6 g/dL (3.5-5.2) 01/14/22 20:33 Globulin 2.6 g/dL (1.3-4.6) 01/14/22 20:33 Lipase 16 U/L (13-60) 01/14/22 20:33 Ser , Semi-Qnt 03879.00 mIU/mL 01/14/22 20:33 Urine Color Yellow (Yellow) 01/15/22 00:19 Urine Appearance Clear (CLEAR) 01/15/22 00:19 Urine pH 6 (5-7) 01/15/22 00:19 Ur Specific [place] 1.030 (1.005-1.030) 01/15/22 00:19 Urine Protein 1+ (Negative) H 01/15/22 00:19 Urine Glucose (UA) Norm (Normal) 01/15/22 00:19 Urine Ketones 3+ (Negative) H 01/15/22 00:19 Urine Blood Neg (Negative) 01/15/22 00:19 Urine Nitrate Negative (Negative) 01/15/22 00:19 Urine Bilirubin Neg (Negative) 01/15/22 00:19 Urine Urobilinogen Norm mg/dL (Negative) 01/15/22 00:19 Ur Leukocyte Esterase Negative (Negative) 01/15/22 00:19 Urine RBC 0-4 /hpf (0-2) H 01/15/22 00:19 Urine WBC None /hpf (0-5) 01/15/22 00:19 Ur Squamous Epith Cells 0-4 /hpf (0-5) H 01/15/22 00:19 Amorphous Sediment Not Reportable 01/15/22 00:19 Urine Bacteria None /hpf (NONE) 01/15/22 00:19 Urine Mucus 2+ /hpf 01/15/22 00:19 Discharge Plan Discharge Patient Disposition: Home Clinical Impression: Hyperemesis gravidarum Condition: Stable Prescriptions: New metoclopramide HCl 10 mg tablet 10 mg PO Q6H PRN (Reason: nausea and vomiting) Qty: 40 0RF promethazine 25 mg suppository 25 mg GA Q6H PRN (Reason: nausea and vomiting) Qty: 12 0RF No Action prenat.vits,mino,[id number] Tablet 1 tab PO DAILY escitalopram oxalate 20 mg tablet 20 mg PO DAILY@0800 albuterol sulfate 90 mcg/actuation HFA aerosol inhaler 2 puff INHALATION Q6H PRN (Reason: Shortness Of Breath) ondansetron 4 mg tablet,disintegrating 4 mg PO Q8H Qty: 30 0RF Discharge Orders: Discharge ED (Routine); Ordered 01/15/22 Ordered By: Juan Luis Cantu Referrals: Bianca Blanchard APN [Primary Care Provider] - Discharge Diet: Advance as tolerated Discharge Activity: Increase activity as tolerated Patient Instructions: Hyperemesis Gravidarum (ED) Activity Restrictions/Additional Instructions: Home and rest. Eat small frequent amounts of food. Drink frequent sips of fluids to stay hydrated. Take medications as directed. Use metoclopramide 10 mg as needed for nausea or vomiting. Use promethazine suppositories per rectum as needed for nausea and vomiting that you are unable to hold down food or fluids. Follow-up with INFORMATION TECHNOLOGY TEACHER for further instruction. Return to ER for worsening symptoms or new concerns. Coding Level of Care Code ED Brushing Operator for Caden Fwd Exam Detailed
[2022-01-14] MEDS: sodium chloride 0.9% 1,000 ML 999 ML IV (23:47)
[2022-01-14] MEDS: metoclopramide 5 mg/mL SDV 2 mL 10 MG IVP (23:47)
[2022-01-15] MEDS: promethazine 25 mg Tablet 12.5 MG PO (00:37)
[2022-01-15 00:41] LABS: Bilirubin Urine Neg (Negative); Blood Urine Neg (Negative); Glucose Urine UA Norm (Normal); Ketones Urine 3+ (Negative); Nitrate Urine Negative (Negative); Protein Urine 1+ (Negative); Urine Appearance Clear (CLEAR); Urine Color Yellow (Yellow); Urobilinogen Urine Norm (Negative); pH Urine 6 (5-7)
[2022-01-15 00:42] LABS: Add Urine Culture? No; Add Urine Microscopic? YES; Leukocyte Esterase Urine Negative (Negative); Mucus Urine 2+ /hpf; RBC Urine 0-4 /hpf (0-2); Squamous Epithelial Cell Urine 0-4 /hpf (0-5)
== END 2022-01-15 01:09 | disposition home or self-care (01) ==
PROVIDERS: Emergency Medicine; Emergency Provider Nurse Practitioner Family; PCP Nurse Practitioner Family
DX: O21.0 Mild hyperemesis gravidarum (principal); Z3A.10 10 weeks gestation of pregnancy
CPT/HCPCS: 36415; 80053; 81001; 83690; 84702; 85025; 96361; 96374; 99284; J2765; J7030; Q0169

== ENCOUNTER → 2022-01-30 12:39 | Outpatient (BNVA) | payer BC, SELFPAY | PROVIDERS: PCP Nurse Practitioner Family; Visit Provider Obstetrics & Gynecology | DX: Z34.81 Encounter for supervision of other normal pregnancy, first trimester (principal); Z12.4 Encounter for screening for malignant neoplasm of cervix | CPT/HCPCS: 80307; 81000; 85027; 86592; 86762; 86803; 86850; 86900; 87086; 87340; 87491; 87591; 87806; 88175 ==

== ENCOUNTER → 2022-03-19 12:52 | Outpatient (BNVA) | payer BC, SELFPAY | PROVIDERS: PCP Nurse Practitioner Family; Visit Provider Obstetrics & Gynecology | DX: Z36.89 Encounter for other specified antenatal screening (principal) | CPT/HCPCS: 76805 ==

== ENCOUNTER → 2022-04-15 12:50 | Outpatient (BNVA) | payer BC, SELFPAY | PROVIDERS: PCP Nurse Practitioner Family; Visit Provider Nurse Practitioner Women's Health | DX: Z34.90 Encounter for supervision of normal pregnancy, unspecified, unspecified trimester (principal) | CPT/HCPCS: 82950; 84315 ==

== ENCOUNTER → 2022-04-28 14:50 | Outpatient (BNVA) | payer BC, SELFPAY | PROVIDERS: PCP Nurse Practitioner Family; Visit Provider Obstetrics & Gynecology | DX: O26.892 Other specified pregnancy related conditions, second trimester (principal); N89.8 Other specified noninflammatory disorders of vagina; Z3A.00 Weeks of gestation of pregnancy not specified | CPT/HCPCS: 81000; 87491; 87591; 87661 ==

== ENCOUNTER → 2022-05-19 07:41 | Outpatient (BNVA) | payer BC, SELFPAY | PROVIDERS: PCP Nurse Practitioner Family; Visit Provider Obstetrics & Gynecology | DX: Z34.90 Encounter for supervision of normal pregnancy, unspecified, unspecified trimester (principal) | CPT/HCPCS: 84315; 84443; 85027 ==

== ENCOUNTER → 2022-07-10 13:56 | Outpatient (BNVA) | payer BC, SELFPAY | PROVIDERS: PCP Nurse Practitioner Family; Visit Provider Nurse Practitioner Women's Health | DX: O99.320 Drug use complicating pregnancy, unspecified trimester | CPT/HCPCS: 80307; 84315; 87081 ==

== ENCOUNTER → 2022-07-17 13:40 | Outpatient (BNVA) | payer BC, SELFPAY | PROVIDERS: PCP Nurse Practitioner Family; Visit Provider Obstetrics & Gynecology | DX: Z34.90 Encounter for supervision of normal pregnancy, unspecified, unspecified trimester (principal) | CPT/HCPCS: 80307; 84315 ==

== ENCOUNTER 2022-07-23 22:12 | Inpatient (IN) | payer BC, SELFPAY ==
[2022-07-23] VITALS (24 sets, daily range): BP systolic 121–159; BP diastolic 67–88; PULSE 59–83; RESP 18; O2SAT 94–100; BMI 21.4
[2022-07-23] MEDS: lactated ringers 1,000 ML 999 ML IV ×2 (22:30→23:40)
--- NOTE | 2022-07-23 22:30 | P.ANESASSM_ITS ---
Pre-Anesthetic Assessment Height/Weight: Height 1.75 m Pulse BP 59 L 142/84 07/23/22 22:04 07/23/22 22:04 Preop Diagnosis: Labor Pain NATALIE Was Beta Jin taken within 24 hours: N/A Was Clonidine taken within 24 hours: N/A Social Tobacco 1 pack(s) per day Exam alert, oriented x 3, clear to auscultation bilaterally and regular rate & rhythm Airway Submandibular: within normal limits Cervical ROM: within normal limits Mallampati: Class II Dentition: full History/ROS No significant history except as noted and No significant complaints Pulmonary Cough CV/HEM None reported None reported Hepatic None reported GI Gastroesophageal Reflux Disease TUMS Metabolic None reported Musc/skel None reported Neuropsych None reported Anesthetic Plan ASA status: 2 Anesthesia: Anesthesia Evaluation and Regional (specify below) (NATALIE) Risk of > 500 ml blood loss (7ml/kg in children): No Medications/Allergies Home Medications Medication Instructions Recorded Confirmed Last Taken Type escitalopram oxalate 20 mg tablet 20 mg PO DAILY@0800 09/18/19 07/10/22 06/17/20 History albuterol sulfate 90 mcg/actuation 2 puff inhalation Q6H PRN 06/18/20 07/10/22 Unknown History aerosol inhaler Shortness Of Breath doxylamine 20 mg-pyridoxine 20 mg 1 tab PO .see notes #60 tabs 03/23/22 07/10/22 Unknown Rx tablet,immediate and delayed release (Marquis[facility]) prenat.vits,mino,[id number]-[id number] 1 tab PO DAILY 07/10/22 07/10/22 Unknown History amoxicillin 500 mg capsule 500 mg PO BID 07/17/22 07/17/22 Unknown History Allergies Allergy/AdvReac Type Severity Reaction Status Date / Time No Known Allergies Allergy Verified 07/10/22 14:09 [facility] Anesthesia Medical History Anxiety and depression Environmental allergies No pertinent past medical history neghx: htn,dm,thyroid,dvt/pe PCP: [facility] Surgical History No history of previous surgery Family History Grandfather Colon cancer Maternal--dx age unknown Diabetes Maternal Denies family history of Ovarian cancer Heart disease Hypercholesteremia Breast cancer Hypertension Uterine cancer Thyroid disease Stroke Social History Smoking and tobacco status: current some day smoker Data Anesthesia Cardiac Studies: No Data to Display
[2022-07-23 22:40] LABS: Basophils % 0.3 %; Eosinophils % 0.4 %; Hematocrit 36.9 % (37.0-47.0); Hemoglobin 12.2 g/dL (11.5-15.3); Lymphocytes # 2.4 10^3/uL (0.8-4.8); Lymphocytes % 21.5 %; Mean Corpuscular HGB Conc 33.1 g/dL (30.0-36.0); Mean Corpuscular Hemoglobin 29.6 pg (28.0-34.0); Mean Corpuscular Volume 89.6 fl (81-99); Mean Platelet Volume 11.4 fL (7.4-10.4); Monocytes # 0.6 10^3/uL (0.2-0.9); Monocytes % 5.6 %; Neutrophils # 7.92 10^3/uL (1.8-7.7); Neutrophils % 71.8 %; Nucleated Red Blood Cells % 0 %; Platelet Count 201 10^3/cmm (130-400); Red Blood Count 4.12 10^6/uL (4.1-5.3); Red Cell Distribution Width 12.7 % (12.1-15.1)
--- NOTE | 2022-07-23 23:43 | ANES.PROC ---
Anesthesia Procedures Procedure/Date: 07/23/22 NATALIE Epidural: Time Out Performed: Yes Consents Signed: Procedure Consent Consent: requested by attending/covering physician and from patient Lumbar Level: L3-L4 Epidural position: sitting Epidural procedure: sterile prep of area, 1% lidocaine to numb the area, 18 g needle, neg for paresthesia, test dose given, 1.5% xylocaine 1:200k epi (5cc), 0.2% Ropivacaine bolus ml (5cc from pump), placed PCEA, no systemic response, sterile dressing applied, L.U.D. no apparent complications and 0.2% Ropiavacaine @ mls/hr (13cc/hours) Additional Comments: Attempted 2 levels. Success at L3-4. JAIR at 7cm. Cath placed 2 cm into space. Pt tolerated well
[2022-07-24] VITALS (35 sets, daily range): BP systolic 98–146; BP diastolic 53–87; PULSE 59–81; RESP 15–16; TEMP 36.5–36.8; O2SAT 98–99
--- NOTE | 2022-07-24 00:07 | P.HP_ITS ---
Providers/Chief Complaint Admitting Physician: Zoe Davidson DO Primary Care Provider: Bianca Blanchard APN Chief Complaint: LOF HPI [employer] History of Present Illness Kailee Vernon is a 27 year old female with NEO 08/08/22 admitted with SROM and irrregular contractions . Initial exam cervix 3cm/0%/-3 vtx with gross fluid noted. EFM- Cat 1. hx- neg per pt. other than severe N/V in early . Review of Systems Narrative: 27yo female A/O x 3, ROS negative in all systems. Const: Denies: fever(s) Card: Denies: swelling of feet/ankles GI: Denies: abdominal pain, nausea, vomiting or constipation : Denies: dysuria, vaginal bleeding, vaginal discharge or other (contractions/leaking fluid ) Musc: Denies: back pain Psych: Reports: anxiety and depression Medications/Allergies Home Medications Medication Instructions Recorded Confirmed Last Taken Type escitalopram oxalate 20 mg tablet 20 mg PO DAILY@0800 09/18/19 07/10/22 06/17/20 History albuterol sulfate 90 mcg/actuation 2 puff inhalation Q6H PRN 06/18/20 07/10/22 Unknown History aerosol inhaler Shortness Of Breath doxylamine 20 mg-pyridoxine 20 mg 1 tab PO .see notes #60 tabs 03/23/22 07/10/22 Unknown Rx tablet,immediate and delayed release (Marquissta) prenat.vits,mino,ghl-abal-ayple 1 tab PO DAILY 07/10/22 07/10/22 Unknown History amoxicillin 500 mg capsule 500 mg PO BID 07/17/22 07/17/22 Unknown History Allergies Allergy/AdvReac Type Severity Reaction Status Date / Time No Known Allergies Allergy Verified 07/10/22 14:09 PFSH [employer] PFSH: Medical History Anxiety and depression Environmental allergies No pertinent past medical history neghx: htn,dm,thyroid,dvt/pe PCP: [facility] Surgical History No history of previous surgery Family History Grandfather Colon cancer Maternal--dx age unknown Diabetes Maternal Denies family history of Ovarian cancer Heart disease Hypercholesteremia Breast cancer Hypertension Uterine cancer Thyroid disease Stroke Social History Smoking and tobacco status: current some day smoker History History History 5 Term 2 1 Miscarriages/Ectopic 1 Living Children 3 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 female alert and oriented in NAD Neck/C-Spine: GENERAL: Yes normal visual inspection Resp: COMMON NORMALS: normal respiratory effort and clear to auscultation bilaterally Cardio: COMMON NORMALS: regular rate and regular rhythm Back/Pelvis: COMMON NORMALS: no CVA tenderness Extremity: GENERAL: Yes normal exam except as noted Neuro: COMMON NORMALS: patient oriented x3, CN's II-XII intact bilaterally and moves all extremities Psych: COMMON NORMALS: mental status grossly normal and cooperative Skin: COMMON NORMALS: no rashes or lesions noted Data 07/23/22 22:20 A&P Assessment and plan (1) Supervision of normal : (2) Anxiety and depression: Plan A. 27yo female at 37.5 wk IUP with SROM Early labor GBS neg Hx of drug use in P. Admit to LD for labor management Attestations Medical Necessity Statement*: Labor management Coding Level of Care Code Acute Code for Chg Fwd Diagnoses Supervision of normal Z34.90 Anxiety and depression F41.9; F32.A
[2022-07-24] MEDS: dextrose 5%-lactated ringers 1,000 ML 125 ML IV (00:51)
[2022-07-24] MEDS: alum-mag-hydroxide-sime 30 mL UDC PO (00:52)
[2022-07-24 01:54] LABS: Amphetamines Screen Urine Negative (Negative); Barbiturates Screen Urine Negative (Negative); Benzodiazepines Screen Urine Negative (Negative); Cocaine Screen Urine Negative (Negative); Opiate Screen Urine Negative (Negative); PCP Screen Urine Negative (Negative); THC Screen Urine Positive (Negative)
[2022-07-24] MEDS: oxytocin 30 UNIT/500 ML BAG IV (01:56)
[2022-07-24] MEDS: ondansetron 2 mg/ML SDV 2 mL 4 MG IVP (02:10)
--- NOTE | 2022-07-24 03:55 | P.PN_ITS ---
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 EFM tracing with occasional variable. Difficult to track contractions. Cx 5cm/90%/-1 vtx well applied. Labor: Station: -3 Monitor Mode: External Contraction Pattern: Irregular Status: Category I Vitals/I&O/Wt Last Vital Signs Pulse 61 07/24/22 03:38 Resp 18 07/23/22 22:25 BP 98/53 07/24/22 03:38 Pulse Ox 99 07/24/22 00:03 O2 Del Method 07/23/22 22:27 07/23/22 07/23/22 07/24/22 14:59 22:59 06:59 Intake Total 1007.166 / 1007.166 Balance 1007.166 / 1007.166 Weight last 48 hrs Weight 62.142 kg Physical Exam Urinary Catheter Management: Charlton: Cath Placed During This Visit: yes Urinary Catheter Date of Insertion: 07/24/22 Urinary Catheter Time of Insertion: 00:15 Data 07/23/22 22:20 A&P Assessment and plan (1) Supervision of normal : (2) Anxiety and depression: Plan A. 37 wk IUP SROM Active labor GBS neg P. Continue care, Discontinue pitocin and watch closely. Attestations Medical Necessity Statement*: manage labor Coding Level of Care Code Acute Code for Chg Fwd Diagnoses Supervision of normal Z34.90 Anxiety and depression F41.9; F32.A
--- NOTE | 2022-07-24 05:27 | P.PN_ITS ---
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 EFM- Variables with each contraction. No late component. Cx- 8cm/90%/-1. Discussed delivery soon. Labor: Station: -2 Monitor Mode: External Contraction Pattern: Irregular Status: Category I Vitals/I&O/Wt Last Vital Signs Pulse 73 07/24/22 05:07 Resp 18 07/23/22 22:25 BP 118/77 07/24/22 05:07 Pulse Ox 99 07/24/22 00:03 O2 Del Method 07/23/22 22:27 07/23/22 07/23/22 07/24/22 14:59 22:59 06:59 Intake Total 1007.166 / 1007.166 Output Total 900 / 900 Balance 107.166 / 107.166 Weight last 48 hrs Weight 62.142 kg Physical Exam Urinary Catheter Management: Charlton: Cath Placed During This Visit: yes Urinary Catheter Date of Insertion: 07/24/22 Urinary Catheter Time of Insertion: 00:15 Data 07/23/22 22:20 A&P Assessment and plan (1) Supervision of normal : A. 37 wk IUP GBS neg P. Deliver soon (2) Anxiety and depression: Attestations Medical Necessity Statement*: labor management Coding Level of Care Code Acute Code for Chg Fwd Diagnoses Supervision of normal Z34.90 Anxiety and depression F41.9; F32.A
--- NOTE | 2022-07-24 06:27 | PM.DELIVERY ---
Delivery Note: Date of delivery: July 24, 2022 Pre-delivery diagnoses: 37wk IUP SROM GBS neg Multiparity Post-delivery diagnoses: same S/P viable male Procedure: 27yo female delivered a viable male 6#1 OA over intact perineum with several pushes. Anterior followed by posterior shoulder then remainder of body without difficulty. Spontaneous cry noted. Cord, very long and tortuous clamped after delay, and baby placed on mothers chest. Nursing staff suctioned, dried and stimulated . Cord blood collected and handed off. Uterus messaged and placenta presented in polk presentation with trailing membranes. Uterus and vaginal vault explored, with no laceration noted. pitocin IV solution started in bolus manner. Uterus firm, bleeding minimal. Mother and stable. Delivering Physician: Stuart SHARP Estimated blood loss (mL): 300 Findings: normal viable male wt-6#1 8/9 Delivery: male Post-Delivery Status: stable History History History 5 Term 2 1 Miscarriages/Ectopic 1 Living Children 3 A&P Assessment and plan (1) Supervision of normal : A. S/P viable male at 37.6 wks gestation GBS neg (2) Anxiety and depression: Plan P. Routine Care Coding Level of Care Code Acute Code for Chg Fwd Diagnoses Supervision of normal Z34.90 Anxiety and depression F41.9; F32.A
[2022-07-24] MEDS: lanolin oint 7 gm 1 APPLIC TOPICAL (09:43)
[2022-07-24] MEDS: benzocaine-menthol 78 gm Canister 1 SPRAY TOPICAL (09:44)
[2022-07-24] MEDS: prenatal vitamin Capsule 1 CAP PO (09:44)
[2022-07-24] MEDS: ibuprofen 800 mg tablet PO ×3 (09:44→20:15)
--- NOTE | 2022-07-24 12:50 | ANE.PACU2 ---
Inpatient post-anesthesia follow up: Airway intact: Yes Vital signs: Temperature 98.1 F Pulse Rate 73 Respiratory Rate 18 Blood Pressure 106/60 Pulse Oximetry 99 Oxygen Delivery Me thod Room Air Oxygen Flow Rate Fraction of Inspir ed Oxygen Hydration adequate: Yes Nausea and vomiting: No Pain level: 2 Mental status: Baseline
[2022-07-24] MEDS: HYDROcodone-acetaminophen 5-325 mg Tablet PO ×2 (13:39→20:15)
[2022-07-24 18:53] LABS: Hematocrit 37.7 % (37.0-47.0); Mean Corpuscular HGB Conc 31.8 g/dL (30.0-36.0); Mean Corpuscular Hemoglobin 29.3 pg (28.0-34.0); Mean Platelet Volume 11.3 fL (7.4-10.4); Platelet Count 198 10^3/cmm (130-400); Red Cell Distribution Width 12.8 % (12.1-15.1); White Blood Count 12.8 10^3/uL (4.0-10.0)
[2022-07-24] MEDS: docusate sodium 100 mg Capsule PO (20:16)
[2022-07-24] MEDS: nicotine 21 mg Patch 1 PATCH TRANSDERMA (21:40)
[2022-07-25] MEDS: acetaminophen 325 mg Tablet 650 MG PO (01:47)
[2022-07-25] MEDS: HYDROcodone-acetaminophen 5-325 mg Tablet PO (02:32)
[2022-07-25 05:55] VITALS: BP 137/81; PULSE 54; RESP 16; O2SAT 98
--- NOTE | 2022-07-25 09:15 | P.DS_ITS ---
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 Pt is tolerating regular diet and ambulating. Caring for Baby without Nursing assistance. Discussed DC to home, pt verbalizes understanding of DC orders and expectations. Discussed Breast feeding and increased fluids and for her to continue PNV. Pt to call and schedule PP visit with her Physician on Wednesday for 4-6 wks. Discussed pelvic rest x 6 wks. VSS, afebrile Exam- unremarkable Lab reviewed. Status: Acute (2) Anxiety and depression: Status: Acute Reason for Visit Reason for Visit: LOF Information Peripartum Data: Infant Delivery Method: Vaginal Physical Exam Urinary Catheter Management: Charlton: Cath Placed During This Visit: yes, but has since been removed by the nurse Reason for Continuing Indwelling Catheter: Decision to DC Catheter Urinary Catheter Date of Insertion: 07/24/22 Urinary Catheter Time of Insertion: 00:15 Date Urinary Catheter Removed: 07/24/22 Time Urinary Catheter Discontinued: 06:10 History History History 5 Term 2 1 Miscarriages/Ectopic 1 Living Children 3 Discharge Data Studies Completed and Pending Laboratory Results WBC 12.8 10^3/uL (4.0-10.0) H 07/24/22 18:41 RBC 4.10 10^6/uL (4.1-5.3) 07/24/22 18:41 Hgb 12.0 g/dL (11.5-15.3) 07/24/22 18:41 Hct 37.7 % (37.0-47.0) 07/24/22 18:41 MCV 92.0 fl (81-99) 07/24/22 18:41 MCH 29.3 pg (28.0-34.0) 07/24/22 18:41 MCHC 31.8 g/dL (30.0-36.0) 07/24/22 18:41 RDW 12.8 % (12.1-15.1) 07/24/22 18:41 Plt Count 198 10^3/cmm (130-400) 07/24/22 18:41 MPV 11.3 fL (7.4-10.4) H 07/24/22 18:41 Neut % (Auto) 71.8 % 07/23/22 22:20 Lymph % (Auto) 21.5 % 07/23/22 22:20 [place] % (Auto) 5.6 % 07/23/22 22:20 Eos % (Auto) 0.4 % 07/23/22 22:20 Baso % (Auto) 0.3 % 07/23/22 22:20 Neut # (Auto) 7.92 10^3/uL (1.8-7.7) H 07/23/22 22:20 Lymph # (Auto) 2.4 10^3/uL (0.8-4.8) 07/23/22 22:20 [place] # (Auto) 0.6 10^3/uL (0.2-0.9) 07/23/22 22:20 Eos # (Auto) 0.0 10^3/uL (0.0-0.8) 07/23/22 22:20 Baso # (Auto) 0.0 10^3/uL (0.0-0.1) 07/23/22 22:20 Nucleated RBC % (auto) 0 % 07/23/22 22:20 Nucleated RBCs # 0.0 /100WBC 07/23/22 22:20 Urine Opiates Screen Negative ng/mL (Negative) 07/24/22 01:35 Ur Barbiturates Screen Negative ng/mL (Negative) 07/24/22 01:35 Ur Phencyclidine Scrn Negative ng/mL (Negative) 07/24/22 01:35 Ur Amphetamines Screen Negative ng/mL (Negative) 07/24/22 01:35 U Benzodiazepines Scrn Negative ng/mL (Negative) 07/24/22 01:35 Urine Cocaine Screen Negative ng/mL (Negative) 07/24/22 01:35 U Marijuana (THC) Screen Positive ng/mL (Negative) H 07/24/22 01:35 Procedures Performed Vitals Last Vital Signs Temp 98.2 F 07/24/22 21:54 Pulse 54 L 07/25/22 05:55 Resp 16 07/25/22 05:55 BP 137/81 03/18/23 05:55 Pulse Ox 98 07/25/22 05:55 O2 Del Method 07/25/22 05:55 Discharge Plan Discharge Patient Disposition: Home Condition: Stable Prescriptions: Continued Bonjesta 20-20 mg tablet,IR,delayed rel,biphasic 1 tab PO .see notes Qty: 60 1RF Rx Instructions: take 1 tablet at bedtime, may increase to 1 tablet twice a day as needed prenat.vits,mino,ria-wjyy-tsawy Tablet 1 tab PO DAILY escitalopram oxalate 20 mg tablet 20 mg PO DAILY@0800 albuterol sulfate 90 mcg/actuation HFA aerosol inhaler 2 puff INHALATION Q6H PRN (Reason: Shortness Of Breath) Held amoxicillin 500 mg capsule 500 mg PO BID Hold Instructions: Resume on 07/25/22. continue as directed if not completed. Discharge Orders: Discharge Order (Routine); Ordered 07/25/22 Ordered By: Zoe Davidson Discharge Diet: Regular Discharge Activity: Resume usual activity and Increase activity as tolerated Patient Instructions: Depression (DC), Bleeding (DC), Preeclampsia and Eclampsia After Delivery (GEN), OB Discharge Report, OB Food/Drug Interaction Guide, Opioid Safety, OB Home Care, OB Vaginal Deliveries - [facility] Activity Restrictions/Additional Instructions: Pelvic rest x 6 wks Assessment: A. S/P viable Male Plan of Treatment: P. DC to home , pt to call and schedule PP visit for 4-6 wks Pt to continue PNV while Breast feeding with increased fluids. Discharge Attestations MACHINE OPERATOR ASSISTANT Time Spent in Discharge Care*: less than 30 min Coding Level of Care Code Acute Code for Chg Fwd Diagnoses Supervision of normal Z34.90 Anxiety and depression F41.9; F32.A
[2022-07-25] MEDS: ibuprofen 800 mg tablet PO (11:43)
[2022-07-25 13:49] VITALS: BP 131/83; PULSE 63; RESP 16; TEMP 36.4; O2SAT 98
== END 2022-07-25 13:35 | disposition home or self-care (01) | DRG 807 ==
LOC: OPOB 22:12 → OBGYN 22:12
PROVIDERS: Admitting Provider Obstetrics & Gynecology; PCP Nurse Practitioner Family; Visit Provider Obstetrics & Gynecology
DX: O99.344 Other mental disorders complicating childbirth (principal); Z37.0 Single live birth; F41.9 Anxiety disorder, unspecified; F32.A Depression, unspecified; Z3A.37 37 weeks gestation of pregnancy
CPT/HCPCS: 12345; 36415; 51702; 59025; 59409; 80306; 83986; 85025; 85027; 96374; 99211; J2405; J2590; J2795; J7120; J7121

== ENCOUNTER 2022-10-07 07:34 | Day surgery (SDC) | payer BC, SELFPAY ==
[2022-10-06 13:33] VITALS: BMI 21.9
--- NOTE | 2022-10-06 13:50 | ANES.PREANE2 ---
Pre-Anesthetic Assessment Height/Weight: Height 1.7 m Weight 63.503 kg Operation Date: 10/07/22 09:00 Proposed Procedures p Laparoscopic Salpingectomy 74577,Z30.2(Not Applicable) - Dallas Magallanes MD Familial anesthetic complications: None Social Tobacco and No alcohol Exam alert, oriented x 3, clear to auscultation bilaterally and regular rate & rhythm Airway Mallampati: Class I Dentition: full Pulmonary Asthma CV/HEM None reported None reported Hepatic None reported GI None reported Metabolic None reported Musc/skel None reported Neuropsych None reported Anesthetic Plan ASA status: 2 Anesthesia: General Risk of > 500 ml blood loss (7ml/kg in children): No Medications/Allergies Home Medications Medication Instructions Recorded Confirmed Last Taken Type escitalopram oxalate 20 mg tablet 20 mg PO DAILY@0800 09/18/19 10/06/22 06/17/20 History albuterol sulfate 90 mcg/actuation 2 puff inhalation Q6H PRN 06/18/20 10/06/22 Unknown History aerosol inhaler Shortness Of Breath Allergies Allergy/AdvReac Type Severity Reaction Status Date / Time No Known Allergies Allergy Verified 10/06/22 11:22 [facility] Anesthesia Medical History Anxiety and depression Environmental allergies No pertinent past medical history neghx: htn,dm,thyroid,dvt/pe PCP: Crystal Blanchard Surgical History No history of previous surgery Family History Grandfather Colon cancer Maternal--dx age unknown Diabetes Maternal Denies family history of Ovarian cancer Heart disease Hypercholesteremia Breast cancer Hypertension Uterine cancer Thyroid disease Stroke Social History Smoking and tobacco status: current some day smoker Substance/Drug Use: current Substance/Drug use frequency: daily Female Reproductive History Date of last menstrual period: 09/25/22 Data Anesthesia Cardiac Studies: No Data to Display
[2022-10-06 14:04] LABS: OR HCG Qualitative Urine Negative (Negative)
[2022-10-06 14:56] LABS: Basophils % 0.5 %; Eosinophils # 0.1 10^3/uL (0.0-0.8); Hematocrit 41.5 % (37.0-47.0); Hemoglobin 13.2 g/dL (11.5-15.3); Lymphocytes # 2.3 10^3/uL (0.8-4.8); Mean Corpuscular HGB Conc 31.8 g/dL (30.0-36.0); Mean Corpuscular Hemoglobin 28.9 pg (28.0-34.0); Monocytes # 0.4 10^3/uL (0.2-0.9); Monocytes % 4.5 %; Neutrophils # 5.47 10^3/uL (1.8-7.7); Neutrophils % 65.8 %; Nucleated Red Blood Cells % 0 %; Platelet Count 291 10^3/cmm (130-400); Red Blood Count 4.56 10^6/uL (4.1-5.3); Red Cell Distribution Width 13.5 % (12.1-15.1); White Blood Count 8.3 10^3/uL (4.0-10.0)
[2022-10-06 15:19] LABS: Alanine Aminotransferase 17 U/L (0-33); Albumin Level 4.4 g/dL (3.5-5.2); Alkaline Phosphatase 59 U/L (35-105); Anion Gap 16.6 (5-19); Aspartate Amino Transferase 19 U/L (0-32); Blood Urea Nitrogen 6 mg/dL (6-20); Calcium 8.7 mg/dL (8.5-10.5); Carbon Dioxide 22 mmol/L (22-29); Chloride 106 mmol/L (98-107); Globulin 2.8 g/dL (1.3-4.6); Glomerular Filtration Rate 146.9 mL/min (90-130); Glucose 83 mg/dL (65-115); Osmolality Calculated 289 mOsm/kg (285-295); Potassium 3.6 mmol/L (3.5-5.1); Sodium 141 mmol/L (136-145); Total Bilirubin 0.2 mg/dL (0.15-1.2); Total Protein 7.2 g/dL (6.6-8.7)
[2022-10-06 15:22] LABS: Add Urine Microscopic? YES; Bilirubin Urine Neg (Negative); Blood Urine Neg (Negative); Glucose Urine UA Norm (Normal); Ketones Urine Negative (Negative); Leukocyte Esterase Urine Negative (Negative); Nitrate Urine Negative (Negative); Protein Urine Neg (Negative); Urine Appearance Hazy (CLEAR); Urine Color Yellow (Yellow); Urobilinogen Urine Norm (Negative); pH Urine 5 (5-7)
[2022-10-06 15:40] LABS: Bacteria Urine 1+ /hpf; RBC Urine RARE /hpf (0-2); Squamous Epithelial Cell Urine 0-4 /hpf (0-5); WBC Urine 0-4 /hpf (0-5)
[2022-10-06 15:41] LABS: Mucus Urine 1+ /hpf
[2022-10-07] VITALS (7 sets, daily range): BP systolic 111–142; BP diastolic 57–87; PULSE 61–77; RESP 14–18; TEMP 36.4–36.7; O2SAT 94–100
[2022-10-07] MEDS: sodium chloride 0.9% 500 ML IV (07:56)
--- NOTE | 2022-10-07 08:30 | P.ANESUD_ITS ---
Pre-Anesthetic Update Pre-Anesthetic Assessment: Date of Surgery/Procedure: 10/07/22 Preop Tenisha gnosis: Desire permanent sterilization Proposed Procedure: Operation Date: 10/07/22 09:00 Proposed Procedures p Laparoscopic Salpingectomy 58347,Z30.2(Not Applicable) - Dallas Magallanes MD Any changes to Pre-Anesthetic Assessment?: No Last Intake: Intake Last Liquid Date 10/06/22 Last Liquid Time 20:00 Last Solid Date 10/06/22 Last Solid Time 20:00 Labs Last 48hrs: Short CBC 10/06/22 Range/Units 13:35 WBC 8.3 (4.0-10.0) 10^3/ uL Hgb 13.2 (11.5-15.3) g/dL Hct 41.5 (37.0-47.0) % MCV 91.0 (81-99) fl Plt Count 291 (130-400) 10^3/c mm Neut % (Auto) 65.8 % Neut # (Auto) 5.47 (1.8-7.7) 10^3/u L BMP 10/06/22 13:35 Sodium 141 Potassium 3.6 Chloride 106 Carbon Dioxide 22 BUN 6 Creatinine 0.5 Glucose 83 Calcium 8.7 Liver Function 10/06/22 Range/Units 13:35 Total Bilirubin 0.2 (0.15-1.2) mg/dL AST 19 (0-32) U/L ALT 17 (0-33) U/L Alkaline Phosphata se 59 (35-105) U/L Albumin 4.4 (3.5-5.2) g/dL Urine 10/06/22 Range/Units 13:32 Urine Color Yellow (Yellow) Urine Appearance Hazy A (CLEAR) Urine pH 5 (5-7) Ur Specific Gravit y 1.020 (1.005-1.030) Urine Protein Neg (Negative) Urine Glucose (UA) Norm (Normal) Urine Ketones Negative (Negative) Urine Nitrate Negative (Negative) Urine Bilirubin Neg (Negative) Ur Leukocyte Jeannette ase Negative (Negative) Urine RBC Rare (0-2) /hpf Urine WBC 0-4 H (0-5) /hpf Blood Bank 10/06/22 13:35 Blood Type A Positive Rho(D) Type Positive Antibody Screen Negative Vitals: Temperature 97.6 F 10/07/22 07:45 Temperature Source Temporal Artery S can 10/07/22 07:45 Pulse Rate 77 10/07/22 07:45 Respiratory Rate 18 10/07/22 07:45 Blood Pressure 117/74 10/07/22 07:45 Blood Pressure Karma n 88 10/07/22 07:45 Pulse Oximetry 96 10/07/22 07:45 Oxygen Delivery Me thod Room Air 10/07/22 07:54 Exam: Pre-Anes Outpt Exam: alert, oriented x 3, clear to auscultation bilaterally and regular rate & rhythm Cardiac Studies: No Data to Display
--- NOTE | 2022-10-07 08:35 | W.PM.OPSUD ---
Surgery/Procedure H&P Update DATE OF PROCEDURE: October 07, 2022 DATE H&P PERFORMED: 10/06/22 H&P UPDATE INFORMATION: I have reviewed H&P completed within last 30 days, I have examined patient prior to procedure and No changes to prior documentation PREOP DIAGNOSIS: Desire permanent sterilization PLANNED PROCEDURE: Operation Date: 10/07/22 09:00 Proposed Procedures p Laparoscopic Salpingectomy 66727,Z30.2(Not Applicable) - Dallas Magallanes MD
[2022-10-07] MEDS: sodium chloride 0.9% 1,000 ML 30 ML IV (08:45)
[2022-10-07] MEDS: ceFAZolin 2,000 MG in sodium chloride 0.9% (plus) 50 ML 100 MG IV (08:53)
[2022-10-07] MEDS: scopolamine 1.5 Patch 1 PATCH TRANSDERMA (08:55)
--- NOTE | 2022-10-07 09:55 | P.OP_ITS ---
Operative Report Date of procedure: October 07, 2022 Pre-op diagnosis: Preop Diagnosis Desire permanent sterilization Post-op diagnosis: Same as above Post-op findings: Mild endometriosis Procedure done: Laparoscopic bilateral salpingectomy. Fulguration of endometriosis lesion Specimens removed/disposition: Left and right fallopian tube Surgeon: Dallas Magallanes MD Estimated blood loss (mL): 5 IV fluids (mL): 800 Urine output (mL): 50 Findings: Mild endometriosis: Small endometriotic lesion left side pelvis. Brief History: She is [place] 27-year-old female desires permanent sterilization. Procedure: After informed consent, the patient was taken to the operating room where general anesthesia was administered. She was placed in the dorsal lithotomy position and prepped and draped in sterile fashion. Pre-Procedure Time-Out verifying the correct patient identity, correct procedure verified with consent, correct site and side, correct patient position, availability of correct implants and any special equipment or requirements was performed and acknowledge by the OR team. The patient was examined under anesthesia and found to have a normal uterus with normal adnexa. A weighted speculum was placed in the vagina, and the anterior lip of cervix was grasped with the single toothed tenaculum. A uterine manipulator was advanced into the endocervical canal and uterus. The tenaculum was removed after uterine manipulator was secured. The speculum was removed from the vagina. An intraumbilical incision was made with a scalpel. While tenting up on the abdomen, a Verres needle was admitted into the intra-abdominal cavity. A saline drop test was performed and noted to be within normal limits. Pneumoperitoneum was attained with 4 liters of carbon dioxide. The Verres needle was removed. A 5 mm Opitc view trocar and sleeve were admitted into the abdomen and laparoscopic confirmation of location was achieved. A second incision was made 3 cm above the symphysis pubis, and a 5 mm trocar sleeves were admitted into the abdomen under direct laparoscopic visualization without complication. A survey revealed normal abdominal anatomy with the exception of string adhesion to the right lower anterior abdominal wall. A 5 mm blunt probe was advanced through the second trocar sleeve, and light manipulation of ovaries and uterus to assess the posterior aspects was performed. The pelvic survey shows normal uterus, left and right adnexa. Cul-de-sac was with small serosanguineous fluid. Small endometriosis lesion was noted left pelvic sidewall. The patient was placed into Trendelenburg position. The fallopian tubes were inspected bilaterally and the fimbriated ends of the fallopian tubes were v isualized bilaterally. Attention was then directed to the right side. The fallopian tube and mesosalpinx were grasped and the underlying mesosalpinx was cauterized and cut using the Ligasure device. Serial cauterization and cutting was used to separate the fallopian tube from the underlying mesosalpinx until it could be amputated cutting it approximated 2 cm from the cornua. Attention was then turned to the contralateral fallopian tube, which was removed in similar fashion. Both specimens were removed through the trocar and sent to pathology. Then small endometriosis lesion was grasped with the Enseal device and was fulgurated. the instruments were removed. The suprapubic trocar port was removed under direct visualization insuring good hemostasis. The carbon dioxide was allowed to escape from the abdomen. The intraumbilical trocar sleeve was withdrawn under visualization with laparoscope in the sleeve to insure hemostasis. The skin incisions were closed with 3-O Monocryl subcuticular stich and Dermabond. Skin incisions well infiltrated with 2% lidocaine subcutaneously. Then the uterine manipulator was removed from the vagina, and excellent hemostasis was noted. The patient tolerated the procedure well, and sponge, lap and needle count were correct times two. The patient was taken to the recovery room in good condition. This documentation was created by [employer] clinical services assistant software (known for inherent clinical services assistant error). Every effort was made to assure accuracy of clinical services assistant. Any obvious errors or omissions should be clarified with the author of the document.
[2022-10-07] MEDS: ibuprofen 800 mg tablet PO (10:38)
--- NOTE | 2022-10-07 12:50 | ANE.PACU2 ---
Inpatient post-anesthesia follow up: Airway intact: Yes Vital signs: Temperature 97.7 F Pulse Rate 61 Respiratory Rate 18 Blood Pressure 111/76 Pulse Oximetry 98 Oxygen Delivery Me thod Room Air Oxygen Flow Rate 4 Fraction of Inspir ed Oxygen Hydration adequate: Yes Nausea and vomiting: No Pain level: 1 Mental status: Baseline
== END 2022-10-07 11:04 | disposition home or self-care (01) ==
PROVIDERS: PCP Nurse Practitioner Family; Visit Provider Obstetrics & Gynecology
PROC: (CPT 58661; principal; 2022-10-07 08:40)
DX: Z30.2 Encounter for sterilization (principal); N80.352 Endometriosis of the left pelvic sidewall, unspecified depth; J45.909 Unspecified asthma, uncomplicated; F41.9 Anxiety disorder, unspecified; F32.9 Major depressive disorder, single episode, unspecified; F17.200 Nicotine dependence, unspecified, uncomplicated
CPT/HCPCS: 58661; 58662; 80053; 81001; 81025; 84703; 85025; 86850; 86900; 88302; J0690; J1100; J1200; J2250; J2405; J2704; J3010; J3490; J7030; J7040